=== PATIENT | female | born 1935 | race Caucasian/White ===

== ENCOUNTER 2020-08-14 06:09 | Outpatient (REF) | payer MEDICARE, OTHER, SELFPAY ==
[2020-08-14 11:03] LABS: MANUAL DIFF FLAG NO
[2020-08-14 11:08] LABS: Basophils Absolute Auto 0.1 X10*3/uL (0.0-0.2); Basophils Percent Auto 0.8 % (0-2); Eosinophils Absolute Auto 0.2 X10*3/uL (0.0-0.4); Eosinophils Percent Auto 2.9 % (0-4); Hematocrit 39.7 % (37-47); Imm Gran Abs Auto 0.01 X10*3/uL (0.00-0.03); Imm Gran Pct Auto 0.2 % (0.0-0.4); Lymphocytes Absolute Auto 1.4 X10*3/uL (1.2-4.9); Lymphocytes Percent Auto 24.2 % (20-40); Mean Corpuscular HGB Conc 32.7 g/dl (31.0-35.0); Mean Corpuscular Volume 97.8 fL (80-98); Mean Platelet Volume 12.1 fL (9.4-12.3); Monocytes Absolute Auto 0.6 X10*3/uL (0.1-1.2); Monocytes Percent Auto 9.5 % (2-11); Neutrophils Absolute Auto 3.7 X10*3/uL (2.0-8.3); Neutrophils Percent Auto 62.4 % (45-73); Platelet Count 202 X10*3/uL (160-400); Red Blood Count 4.06 X10*6/uL (4.20-5.50); Red Cell Distribution Width 12.4 % (11.0-16.0); White Blood Count 5.9 X10*3/uL (4.8-10.8)
[2020-08-14 11:31] LABS: Alanine Aminotransferase 16 U/L (0-31); Anion Gap 11 (12-20); Aspartate Amino Transferase 18 U/L (5-31); Blood Urea Nitrogen 23 mg/dL (9-16); Calcium 8.6 mg/dL (8.4-10.2); Carbon Dioxide 27 mmol/L (22-29); Chloride 107 mmol/L (96-108); Cholesterol 155 mg/dL; Estimated Glomerular Filt Rate > 60; Glucose Fasting 104 mg/dL (60-99); HDL Cholesterol 59 mg/dL; LDL Cholesterol Calculated 77 mg/dl; Potassium 4.4 mmol/L (3.3-5.1); Sodium 141 mmol/L (135-145); Triglycerides 95 mg/dL
[2020-08-14 11:53] LABS: Free T4 (Free Thyroxine) 1.39 ng/dL (0.71-1.85); Thyroid Stimulating Hormone 1.79 uIU/mL (0.32-4.0); Vitamin D 25-OH Total 27.1 ng/mL (>30)
== END 2020-08-14 06:10 | disposition home or self-care (01) ==
LOC: HO.HMGCLDS 06:09
PROVIDERS: PCP Internal Medicine; Visit Provider Internal Medicine
DX: E03.9 Hypothyroidism, unspecified (principal); I10 Essential (primary) hypertension; Z78.0 Asymptomatic menopausal state
CPT/HCPCS: 36415; 80048; 80061; 82306; 84439; 84443; 84450; 84460; 85025

== ENCOUNTER 2020-12-14 06:08 | Outpatient (REF) | payer MEDICARE, OTHER, SELFPAY ==
[2020-12-14 11:41] LABS: Alanine Aminotransferase 11 U/L (0-31); Anion Gap 13 (12-20); Aspartate Amino Transferase 18 U/L (5-31); Blood Urea Nitrogen 26 mg/dL (9-16); Calcium 8.9 mg/dL (8.4-10.2); Carbon Dioxide 26 mmol/L (22-29); Chloride 109 mmol/L (96-108); Cholesterol 159 mg/dL; Estimated Glomerular Filt Rate > 60; Glucose Fasting 102 mg/dL (60-99); HDL Cholesterol 56 mg/dL; LDL Cholesterol Calculated 85 mg/dl; Potassium 4.7 mmol/L (3.3-5.1); Sodium 143 mmol/L (135-145); Triglycerides 92 mg/dL
[2020-12-14 12:10] LABS: Free T4 (Free Thyroxine) 1.36 ng/dL (0.71-1.85); Thyroid Stimulating Hormone 0.58 uIU/mL (0.32-4.0); Vitamin D 25-OH Total 47.1 ng/mL (>30)
== END 2020-12-14 06:09 | disposition home or self-care (01) ==
LOC: HO.HMGCLDS 06:08
PROVIDERS: PCP Internal Medicine; Visit Provider Internal Medicine
DX: E03.9 Hypothyroidism, unspecified (principal); E55.9 Vitamin D deficiency, unspecified; E78.5 Hyperlipidemia, unspecified; I10 Essential (primary) hypertension; Z78.0 Asymptomatic menopausal state
CPT/HCPCS: 36415; 80048; 80061; 82306; 84439; 84443; 84450; 84460

== ENCOUNTER 2021-04-02 06:05 | Outpatient (REF) | payer MEDICARE, OTHER, SELFPAY ==
[2021-04-02 11:57] LABS: Alanine Aminotransferase 16 U/L (0-31); Aspartate Amino Transferase 18 U/L (5-31); Cholesterol 151 mg/dL; HDL Cholesterol 57 mg/dL; LDL Cholesterol Calculated 74 mg/dl; Triglycerides 101 mg/dL
[2021-04-02 12:01] LABS: Free T4 (Free Thyroxine) 1.27 ng/dL (0.71-1.85); Thyroid Stimulating Hormone 1.39 uIU/mL (0.32-4.0)
== END 2021-04-02 06:06 | disposition home or self-care (01) ==
LOC: HO.HMGCLDS 06:05
PROVIDERS: PCP Internal Medicine; Visit Provider Internal Medicine
DX: I65.23 Occlusion and stenosis of bilateral carotid arteries (principal); I25.10 Atherosclerotic heart disease of native coronary artery without angina pectoris; E78.5 Hyperlipidemia, unspecified; E03.9 Hypothyroidism, unspecified; Z78.0 Asymptomatic menopausal state
CPT/HCPCS: 36415; 80061; 84439; 84443; 84450; 84460

== ENCOUNTER 2021-09-28 13:48 | Outpatient (REF) | payer MEDICARE, OTHER, SELFPAY ==
[2021-09-28 14:00] LABS: Appearance Urine HAZY; Color Urine YELLOW; Glucose Urine UA NEG (NEG); Leukocyte Esterase Urine NEG (NEG); Nitrite Urine NEG (NEG); PH 5.5 (5.0-8.0); UACC Culture Trigger NO; Urine Blood 1+ (NEG); Urine Ketones NEG (NEG); Urine Protein NEG (NEG-TRACE)
[2021-09-28 14:11] LABS: RBC Urine 0-2 /HPF (0); Squamous Epithelial Cell Urine TRACE /LPF; WBC Urine 0-2 /HPF (0-4)
== END 2021-09-28 13:49 | disposition home or self-care (01) ==
LOC: HO.LNP 13:48
PROVIDERS: Visit Provider Physician Assistant Medical
DX: R30.0 Dysuria (principal)
CPT/HCPCS: 81001

== ENCOUNTER 2021-10-08 06:04 | Outpatient (REF) | payer MEDICARE, OTHER, SELFPAY ==
[2021-10-08 11:13] LABS: MANUAL DIFF FLAG NO
[2021-10-08 11:17] LABS: Appearance Urine CLEAR; Color Urine YELLOW; Glucose Urine UA NEG (NEG); Leukocyte Esterase Urine NEG (NEG); Nitrite Urine NEG (NEG); PH 5.5 (5.0-8.0); UACC Culture Trigger NO; Urine Blood TRACE (NEG); Urine Ketones NEG (NEG); Urine Protein NEG (NEG-TRACE)
[2021-10-08 11:30] LABS: Basophils Percent Auto 0.7 % (0-2); Eosinophils Absolute Auto 0.1 X10*3/uL (0.0-0.4); Eosinophils Percent Auto 2.5 % (0-4); Hemoglobin 12.6 g/dl (12.0-16.0); Imm Gran Abs Auto 0.01 X10*3/uL (0.00-0.03); Imm Gran Pct Auto 0.2 % (0.0-0.4); Lymphocytes Absolute Auto 1.4 X10*3/uL (1.2-4.9); Lymphocytes Percent Auto 25.6 % (20-40); Mean Corpuscular HGB Conc 32.3 g/dl (31.0-35.0); Mean Corpuscular Hemoglobin 31.4 pg (27.0-33.0); Mean Corpuscular Volume 97.3 fL (80.0-98.0); Mean Platelet Volume 11.9 fL (9.4-12.3); Monocytes Absolute Auto 0.6 X10*3/uL (0.1-1.2); Monocytes Percent Auto 10.1 % (2-11); Neutrophils Absolute Auto 3.4 x10*3/uL (2.0-8.3); Neutrophils Percent Auto 60.9 % (45-73); Platelet Count 196 X10*3/uL (160-400); Red Blood Count 4.01 X10*6/uL (4.20-5.50); Red Cell Distribution Width 12.4 % (11.0-16.0); White Blood Count 5.6 X10*3/uL (4.8-10.8)
[2021-10-08 11:35] LABS: Alanine Aminotransferase 13 U/L (0-31); Anion Gap 10 (12-20); Aspartate Amino Transferase 16 U/L (5-31); Blood Urea Nitrogen 26 mg/dL (9-16); Calcium 9.1 mg/dL (8.4-10.2); Carbon Dioxide 27 mmol/L (22-29); Chloride 107 mmol/L (96-108); Cholesterol 212 mg/dL; Estimated Glomerular Filt Rate > 60; Glucose Fasting 116 mg/dL (60-99); HDL Cholesterol 55 mg/dL; LDL Cholesterol Calculated 141 mg/dl; Potassium 4.3 mmol/L (3.3-5.1); Sodium 140 mmol/L (135-145); Triglycerides 82 mg/dL
[2021-10-08 11:48] LABS: WBC Urine 0-2 /HPF (0-4)
[2021-10-08 11:49] LABS: Squamous Epithelial Cell Urine 1+ /LPF
[2021-10-08 12:01] LABS: Free T4 (Free Thyroxine) 1.32 ng/dL (0.71-1.85); Thyroid Stimulating Hormone 1.53 uIU/mL (0.32-4.0); Vitamin D 25-OH Total 24.4 ng/mL (>30)
== END 2021-10-08 06:05 | disposition home or self-care (01) ==
LOC: HO.HMGCLDS 06:04
PROVIDERS: Physician Assistant Medical; Visit Provider Internal Medicine
DX: I65.23 Occlusion and stenosis of bilateral carotid arteries (principal); I73.9 Peripheral vascular disease, unspecified; I10 Essential (primary) hypertension; I25.10 Atherosclerotic heart disease of native coronary artery without angina pectoris; E03.9 Hypothyroidism, unspecified; E78.5 Hyperlipidemia, unspecified; R30.0 Dysuria
CPT/HCPCS: 36415; 80048; 80061; 81001; 82306; 84439; 84443; 84450; 84460; 85025

== ENCOUNTER 2021-10-25 14:28 | Outpatient (REF) | payer MEDICARE, OTHER, SELFPAY ==
[2021-10-25 16:31] LABS: Appearance Urine CLEAR; Color Urine YELLOW; Glucose Urine UA NEG (NEG); Leukocyte Esterase Urine 1+ (NEG); Nitrite Urine NEG (NEG); UACC Culture Trigger YES; Urine Blood 1+ (NEG); Urine Ketones NEG (NEG); Urine Protein NEG (NEG-TRACE)
[2021-10-25 16:58] LABS: Bacteria Urine 2+ /LPF; Mucus Urine 2+ /LPF; Squamous Epithelial Cell Urine 2+ /LPF; WBC Clumps Urine NOTED
== END 2021-10-25 14:29 | disposition home or self-care (01) ==
LOC: HO.LAB 14:28
PROVIDERS: Visit Provider Nurse Practitioner Acute Care
DX: N39.0 Urinary tract infection, site not specified (principal)
CPT/HCPCS: 81001; 87086

== ENCOUNTER 2021-11-28 08:43 | Outpatient (REF) | payer MEDICARE, OTHER, SELFPAY ==
--- NOTE | ~2021-11-28 | XR_ITS ---
EXAMINATION: XR CHEST CLINICAL INFORMATION: S20.229A - Contusion of unspecified back wall of thorax COMPARISON: None TECHNIQUE: 2 views of the chest were obtained. FINDINGS: There is mild hyperinflation greater upper zones. Small bibasilar effusions are present with subsegmental atelectasis, greater on left. There is no pneumothorax. No lobar or segmental airspace consolidation are bronchogram. The heart is normal in size. The hilar and mediastinal contours are normal. No visible acute bony abnormality. There are mild multilevel degenerative changes thoracic spine. XR/XR chest 2V IMPRESSION: -Small bibasilar effusions and subsegmental atelectasis. -No lobar or segmental airspace consolidation. No pneumothorax or pleural reaction. -No visible acute bony abnormality.
== END 2021-11-28 08:44 | disposition home or self-care (01) ==
LOC: HO.HMGCX 08:43
PROVIDERS: Visit Provider Internal Medicine
DX: S20.229A Contusion of unspecified back wall of thorax, initial encounter (principal); X58.XXXA Exposure to other specified factors, initial encounter; Y93.9 Activity, unspecified; Y92.9 Unspecified place or not applicable; Y99.9 Unspecified external cause status
CPT/HCPCS: 71046

== ENCOUNTER 2022-02-19 15:29 | Outpatient (REF) | payer MEDICARE, OTHER, SELFPAY ==
--- NOTE | ~2022-02-19 | XR_ITS ---
EXAMINATION: XR KNEE, LEFT CLINICAL INFORMATION: S83.92XA - Sprain of unspecified site of left knee, initial encounter COMPARISON: None TECHNIQUE: AP, lateral, and both oblique views of the left knee. FINDINGS: Enthesopathic spurs are present at the quadriceps tendon insertion, patellar tendon origin, and patellar tendon insertion. No fracture or malalignment. Joint spaces are well-preserved. Calcific atherosclerosis is present in the popliteal and runoff arteries. No joint effusion. XR/XR knee LT 4V IMPRESSION: No acute osseous findings at the left knee.
== END 2022-02-19 15:30 | disposition home or self-care (01) ==
LOC: HO.HMGCX 15:29
PROVIDERS: PCP Internal Medicine; Visit Provider Internal Medicine
DX: S83.92XA Sprain of unspecified site of left knee, initial encounter (principal)
CPT/HCPCS: 73564

== ENCOUNTER 2022-03-08 06:01 | Outpatient (REF) | payer MEDICARE, OTHER, SELFPAY ==
[2022-03-08 11:58] LABS: Alanine Aminotransferase 19 U/L (0-31); Anion Gap 13 (12-20); Aspartate Amino Transferase 26 U/L (5-31); Blood Urea Nitrogen 22 mg/dL (9-16); Calcium 8.7 mg/dL (8.4-10.2); Carbon Dioxide 25 mmol/L (22-29); Chloride 105 mmol/L (96-108); Cholesterol 214 mg/dL; Estimated Glomerular Filt Rate > 60; Glucose Fasting 112 mg/dL (60-99); HDL Cholesterol 59 mg/dL; LDL Cholesterol Calculated 139 mg/dl; Potassium 4.3 mmol/L (3.3-5.1); Sodium 139 mmol/L (135-145); Triglycerides 82 mg/dL
[2022-03-08 12:25] LABS: Free T4 (Free Thyroxine) 1.44 ng/dL (0.71-1.85); Thyroid Stimulating Hormone 1.34 uIU/mL (0.32-4.0); Vitamin D 25-OH Total 34.8 ng/mL (>30)
== END 2022-03-08 06:02 | disposition home or self-care (01) ==
LOC: HO.HMGCLDS 06:01
PROVIDERS: PCP Internal Medicine; Visit Provider Internal Medicine
DX: E55.9 Vitamin D deficiency, unspecified (principal); E78.5 Hyperlipidemia, unspecified; I10 Essential (primary) hypertension; E03.9 Hypothyroidism, unspecified
CPT/HCPCS: 36415; 80048; 80061; 82306; 84439; 84443; 84450; 84460

== ENCOUNTER 2022-09-04 06:08 | Outpatient (REF) | payer MEDICARE, OTHER, SELFPAY ==
[2022-09-04 11:19] LABS: MANUAL DIFF FLAG NO
[2022-09-04 11:24] LABS: Basophils Percent Auto 0.7 % (0-2); Eosinophils Absolute Auto 0.1 X10*3/uL (0.0-0.4); Eosinophils Percent Auto 2.4 % (0-4); Hematocrit 40.8 % (37.0-47.0); Hemoglobin 13.4 g/dl (12.0-16.0); Imm Gran Abs Auto 0.02 X10*3/uL (0.00-0.03); Imm Gran Pct Auto 0.4 % (0.0-0.4); Lymphocytes Absolute Auto 1.5 X10*3/uL (1.2-4.9); Lymphocytes Percent Auto 26.6 % (20-40); Mean Corpuscular HGB Conc 32.8 g/dl (31.0-35.0); Mean Corpuscular Hemoglobin 31.5 pg (27.0-33.0); Mean Corpuscular Volume 95.8 fL (80.0-98.0); Monocytes Absolute Auto 0.6 X10*3/uL (0.1-1.2); Monocytes Percent Auto 10.7 % (2-11); Neutrophils Absolute Auto 3.3 x10*3/uL (2.0-8.3); Neutrophils Percent Auto 59.2 % (45-73); Platelet Count 175 X10*3/uL (160-400); Red Blood Count 4.26 X10*6/uL (4.20-5.50); Red Cell Distribution Width 12.5 % (11.0-16.0); White Blood Count 5.5 X10*3/uL (4.8-10.8)
[2022-09-04 11:59] LABS: Alanine Aminotransferase 14 U/L (0-31); Anion Gap 12 (12-20); Aspartate Amino Transferase 19 U/L (5-31); Blood Urea Nitrogen 25 mg/dL (9-16); Carbon Dioxide 27 mmol/L (22-29); Chloride 107 mmol/L (96-108); Cholesterol 221 mg/dL; Estimated Glomerular Filt Rate > 60; Glucose Fasting 109 mg/dL (60-99); HDL Cholesterol 61 mg/dL; LDL Cholesterol Calculated 142 mg/dl; Potassium 4.4 mmol/L (3.3-5.1); Sodium 142 mmol/L (135-145); Triglycerides 94 mg/dL
[2022-09-04 12:01] LABS: Free T4 (Free Thyroxine) 1.21 ng/dL (0.71-1.85); Thyroid Stimulating Hormone 0.84 uIU/mL (0.32-4.0); Vitamin D 25-OH Total 21.9 ng/mL (>30)
== END 2022-09-04 06:09 | disposition home or self-care (01) ==
LOC: HO.HMGCLDS 06:08
PROVIDERS: PCP Internal Medicine; Visit Provider Internal Medicine
DX: E03.9 Hypothyroidism, unspecified (principal); E78.5 Hyperlipidemia, unspecified; N95.9 Unspecified menopausal and perimenopausal disorder; I10 Essential (primary) hypertension
CPT/HCPCS: 36415; 80048; 80061; 82306; 84439; 84443; 84450; 84460; 85025

== ENCOUNTER 2022-10-01 06:05 | Outpatient (REF) | payer MEDICARE, OTHER, SELFPAY ==
[2022-10-01 11:39] LABS: Appearance Urine Clear; Color Urine Yellow; Glucose Urine UA Negative (Negative); Leukocyte Esterase Urine Small (1+) (Negative); Nitrite Urine Negative (Negative); PH 6.5 (5.0-9.0); Specific Gravity - Urine 1.015 (1.005-1.025); UMIC TRIGGER UACC YES; Urine Blood Small (1+) (Negative); Urine Ketones Negative (Negative); Urine Protein Negative (Neg-Trace)
[2022-10-01 12:37] LABS: Bacteria Urine None Seen (None Seen); Hyaline Casts Urine 0-2 /LPF (0-2); Renal Epithelial Cells Urine Present; Transitional Epi Cells Urine Present; UACC Culture Trigger YES
== END 2022-10-01 06:06 | disposition home or self-care (01) ==
LOC: HO.HMGCLNP 06:05
PROVIDERS: PCP Internal Medicine; Visit Provider Internal Medicine
DX: N39.0 Urinary tract infection, site not specified (principal)
CPT/HCPCS: 81001; 87086

== ENCOUNTER 2023-02-27 06:09 | Outpatient (REF) | payer MEDICARE, OTHER, SELFPAY ==
[2023-02-27 12:06] LABS: Appearance Urine Clear; Color Urine Yellow; Glucose Urine UA Negative (Negative); Leukocyte Esterase Urine Small (1+) (Negative); Nitrite Urine Negative (Negative); PH 5.5 (5.0-9.0); Specific Gravity - Urine 1.015 (1.005-1.025); UMIC TRIGGER UACC YES; Urine Blood Trace (Negative); Urine Ketones Negative (Negative); Urine Protein Negative (Neg-Trace)
[2023-02-27 12:15] LABS: Alanine Aminotransferase 11 U/L (0-31); Anion Gap 11 (12-20); Aspartate Amino Transferase 18 U/L (5-31); Blood Urea Nitrogen 22 mg/dL (9-16); Calcium 9.3 mg/dL (8.4-10.2); Carbon Dioxide 26 mmol/L (22-29); Chloride 107 mmol/L (96-108); Cholesterol 193 mg/dL (<200); Estimated Glomerular Filt Rate > 60; Glucose Fasting 110 mg/dL (60-99); HDL Cholesterol 54 mg/dL (>40); LDL Cholesterol Calculated 116 mg/dL (<100); Potassium 4.4 mmol/L (3.3-5.1); Sodium 140 mmol/L (135-145); Triglycerides 117 mg/dL (<150)
[2023-02-27 12:20] LABS: Bacteria Urine None Seen (None Seen); Hyaline Casts Urine 0-2 /LPF (0-2); RBC Urine 0-2 /HPF (0-2); UACC Culture Trigger YES; WBC Urine 0-5 /HPF (0-5)
[2023-02-27 12:35] LABS: Free T4 (Free Thyroxine) 1.17 ng/dL (0.71-1.85); Thyroid Stimulating Hormone 0.74 uIU/mL (0.32-4.0); Vitamin D 25-OH Total 36.5 ng/mL (>30)
== END 2023-02-27 06:10 | disposition home or self-care (01) ==
LOC: HO.HMGCLDS 06:09
PROVIDERS: PCP Internal Medicine; Visit Provider Internal Medicine
DX: E03.9 Hypothyroidism, unspecified (principal); E55.9 Vitamin D deficiency, unspecified; E78.5 Hyperlipidemia, unspecified; I10 Essential (primary) hypertension; N39.0 Urinary tract infection, site not specified; I25.10 Atherosclerotic heart disease of native coronary artery without angina pectoris; I73.9 Peripheral vascular disease, unspecified; Z78.0 Asymptomatic menopausal state
CPT/HCPCS: 36415; 80048; 80061; 81001; 81003; 82306; 84439; 84443; 84450; 84460; 87086

== ENCOUNTER 2023-03-18 08:26 | Outpatient (AMB) | payer MEDICARE, OTHER, SELFPAY ==
--- NOTE | 2023-03-18 08:27 | AM.OFFVISMDC ---
Intake Vital Signs 03/18/23 08:33 Height 5 ft 4 in Weight 128 lb BMI 22.0 BP 144/54 H Blood Pressure Location Lt brachial Position Sitting Pulse 76 Pulse Source Pulse Oximeter Pulse Oximetry (%) 99 Oxygen Delivery Method Room Air Intake Visit Reasons: SWV G0439 Intake Note: Pt is here today for her SWV Allergies ezetimibe [From ZETIA] Allergy (Severe, Verified 03/26/23 14:38) MUSCLE PAIN Orwrzmp-UNN-KkJ Reductase Inhibitor [LAQWVCR-PLO-JGH REDUCTASE INHIBITOR] Allergy (Severe, Verified 03/26/23 14:38) MUSCLE PAIN Sulfa (Sulfonamide Antibiotics) [SULFA (SULFONAMIDE ANTIBIOTICS)] Allergy (Mild, Verified 03/26/23 14:38) RASH losartan [From COZAAR] Allergy (Unknown, Verified 03/26/23 14:38) UNKNOWN Medication List - Last Reconciled 03/18/23 by Ivelisse Masters MD amlodipine 5 mg PO DAILY aspirin 81 mg PO DAILY carvedilol 12.5 mg PO Q12H colestipol 5 grams PO DAILY enalapril maleate 5 mg PO DAILY faricimab-svoa (Vabysmo) 0.05 mL intravitreal Q4W levothyroxine 75 mcg PO DAILY red yeast rice 600 mg PO ONCE HPI SWV G0439 HPI Details SWV ? 87 year old lady with hypertension, hypothyroidism, prefer vascular disease and coronary artery disease, macular degeneration, presents today for her ? Annual Wellness Visit, subsequent visit. She no longer gets screening mammograms Pap smears or colonoscopy screening, her last colonoscopy was done by Dr. Gonzales December 06, 2013 with normal findings. She is up-to-date with her flu shot, but due for her yearly update flu vaccine, had Shingrix vaccination, up-to-date with her pneumonia vaccination and tetanus diphtheria booster. She had a normal fasting lipid panel done February 27, 2023, and a fasting blood sugar level was done at that time which showed a fasting blood sugar at 1 10 mg/dL in the prediabetic range. .? Medical / Social History Reviewed? Past Medical History ?Yes . ? [place] of Care / Care Team list updated ?Yes . ? Surgical/Hospitalization History ?Yes . ? Current Medications (including OTC and supplements) ?Yes . ? Family History ?Yes . ? Tobacco Control form ?Yes . ? AUDIT-C (Alcohol use) form ?Yes . ? Illicit drug use in Social History ?Yes . ? Current diagnosis of depression? ?No ? Appropriate PHQ2/PHQ9 completed ?Yes . ? Data entered by ?[employer] and reviewed by provider ? Fall Risk ? Fall History? Have you had any falls with injury in the past year? ?No . ? Have you had two or more falls in the past year? ?No . ? Fall Risk Assessment: ?No falls in the past year . ? HRA filled out by the patient, reviewed by Provider and scanned. ? SWV ? Balance? [place] ?Yes . ? Tandem walk ?with some difficulty but able to do ? Walk and Turn ?Yes . ? Rise from sit to stand ?Yes . ?Vision? Corrective lens ?Yes ? Vision screen ? Up-to-date, currently sees Dr. Méndez at the [facility] for follow-up on her wet ARMD, OD ?Hearing? Whisper test ?pass . ?Written Plan?Completed. See Patient Documents.? 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 Sister No problems noted. Social History Housing: House Patient Tobacco Use Status: Never used Tobacco e-Cigarette/Vaping Use: Never Used Second Hand Smoke Exposure: No service: No Current occupational status: retired Cognitive needs: No Hearing needs: No Vision needs: Yes Questionnaire Medicare Wellness Checkup What is your age?: 80 or older What gender do you identify with?: female During the past 4 weeks, how much have you been bothered by emotional problems such as feeling anxious, depressed, irritable, sad or downhearted, and blue?: not at all During the past 4 weeks, has your physical & emotional health limited your social activities with family, friends, neighbors, or groups?: not at all During the past 4 weeks, how much bodily pain have you generally had?: very mild pain During the past 4 weeks, was someone available to help you if you needed & wanted help?: yes, as much as I wanted During the past 4 weeks, what was the hardest physical activity you could do for at least 2 minutes?: moderate Can you get to places out of walking distance without help? (For eg., can you travel alone on buses, taxis or drive your car?): Yes Can you go shopping for groceries or clothes without someone's help?: Yes Can you prepare your own meals?: Yes Can you do your housework without help?: Yes Because of any health problems, do you need the help of another person with your personal care needs such as eating, bathing, dressing or getting around the house?: No Can you handle your own money without help?: Yes During the past 4 weeks, how would you rate your health in general?: very good During the past 4 weeks how have things been going for you?: very well; could hardly better Are you having difficulties driving your car?: no Do you always fasten your seat belt when you are in a car?: yes, usually Have you fallen 2 or more times in the past year?: No Are you afraid of falling?: Yes Are you a smoker?: no During the past 4 weeks, how many drinks of wine, beer, or other alcoholic beverages did you have?: no alcohol at all Do you exercise for about 20 minutes 3 or more times a week?: no, I usually do not exercise this much Have you been given information to help with the following?: yes: Hazards in your house that might hurt you? and yes: Keeping track of your medications? How often do you have trouble taking medicines the way you have been told to take them?: I always take medicine as prescribed How confident are you that you can control & manage most of your health problems?: very confident What is your race?: White Mini Mental State Exam (MMSE) Orientation What is the (year) (season) (date) (day) (month)?: year (2022), season (summer), date ([id number]), day and month (Feb) Where are we (state) (county) (town or city) (hospital) (floor)?: state ([place]), [facility] ([place]), town or city ([place]) and hospital/clinic ([facility]) Score Score: 9 Activity of Daily Living Bathing - sponge bath, tub bath or shower: receives no assistance (gets in/out by self, if usual bathing means Dressing - getting clothes from closets & drawers, including inner/outer garments & fasteners.: gets clothes & gets completely dressed without help Toileting - going to the 'toilet room' for urine/bowel elimination & cleaning self/arranging clothes: goes to toilet room, cleans self, arranges clothes without help Transfer: moves in & out of bed and chair without help (may use support object) Continence: has occasional 'accidents' Feeding: feeds self without help Total Score: 0 Information obtained from: patient Using telephone: independent Traveling: independent Shopping: independent Preparing meals: independent Housework: independent Taking medicine: independent Managing money: independent PHQ-9 Over the last 2 weeks, how often have you been bothered by any of the following problems? 1. Little interest or pleasure in doing things: not at all 2. Feeling down, depressed, or hopeless: not at all 3. Trouble falling or staying asleep, or sleeping too much: several days 4. Feeling tired or having little energy: not at all 5. Poor appetite or overeating: not at all 6. Feeling bad about yourself - or that you are a failure or have let yourself or your family down: not at all 7. Trouble concentrating on things, such as reading the newspaper or watching television: not at all 8. Moving or speaking so slowly that other people could have noticed. Or the opposite - being so fidgety or restless that you have been moving around a lot more than usual: not at all 9. Thoughts that you would be better off or of hurting yourself in some way: not at all Total score: 1 Depression Screening Interpretation: Negative Source: Developed by Drs. Vimal Rosa, Kelsey Henderson, Carlos Mejias and colleagues, with an educational gely from [employer]. Physical Exam Vital Signs: Last Vital Signs Pulse 76 03/18/23 08:33 BP 144/54 H 03/18/23 08:33 Pulse Ox 99 03/18/23 08:33 Oxygen Delivery Method Room Air 03/18/23 08:33 BMI result Body Mass Index 22.0 Assessment & Plan Assessment & Plan (1) Encounter for annual wellness visit (AWV) in Medicare patient: Code(s): Z00.00 - Encounter for general adult medical examination without abnormal findings Plan: Medical wellness checklist reviewed , discussed, and updated, copy given to patient.. Patient already completed her MOLST form and has a healthcare proxy at home will provide a copy on next visit. Reminded to get her COVID booster and her flu shot for this year (2) Vitamin D deficiency: Code(s): E55.9 - Vitamin D deficiency, unspecified Plan: Advised to start taking batv-zck-yatdsgt vitamin-D 3 2000 units daily (3) Recurrent UTI: Code(s): N39.0 - Urinary tract infection, site not specified Plan: Currently followed at [facility] (4) Atherosclerotic heart disease of [place] coronary artery without angina pectoris: Code(s): I25.10 - Atherosclerotic heart disease of [place] coronary artery without angina pectoris Plan: Continue aspirin 81 mg dL, carvedilol, amlodipine, followed by [facility], Dr. Sosa (5) Bilateral carotid artery stenosis: Code(s): I65.23 - Occlusion and stenosis of bilateral carotid arteries Plan: Followed by cardiology (6) Dyslipidemia: Code(s): E78.5 - Hyperlipidemia, unspecified Plan: Patient does not want start statins, has been taking red yeast rice (7) Essential hypertension: Code(s): I10 - Essential (primary) hypertension Plan: Stable controlled on her present treatment, currently on enalapril maleate, carvedilol and amlodipine (8) Acquired hypothyroidism: Code(s): E03.9 - Hypothyroidism, unspecified Plan: Yet continue with levothyroxine (9) Age-related macular degeneration, wet, right eye: Code(s): H35.3210 - Exudative age-related macular degeneration, right eye, stage unspecified Plan: Currently being followed at [facility] [place] Orders: Orders Alanine Aminotransferase 09/15/23 E55.9 - Vitamin D deficiency, unspecified, N39.0 - Urinary tract infection, site not specified, I25.10 - Atherosclerotic heart disease of [place] coronary artery without angina pectoris, I65.23 - Occlusion and stenosis of bilateral carotid arteries, I73.9 - Peripheral vascular disease, unspecified, E78.5 - Hyperlipidemia, unspecified, I10 - Essential (primary) hypertension, H35.3210 - Exudative age-related macular degeneration, right eye, stage unspecified, E03.9 - Hypothyroidism, unspecified Aspartate Amino Transferase 09/15/23 E55.9 - Vitamin D deficiency, unspecified, N39.0 - Urinary tract infection, site not specified, I25.10 - Atherosclerotic heart disease of [place] coronary artery without angina pectoris, I65.23 - Occlusion and stenosis of bilateral carotid arteries, I73.9 - Peripheral vascular disease, unspecified, E78.5 - Hyperlipidemia, unspecified, I10 - Essential (primary) hypertension, H35.3210 - Exudative age-related macular degeneration, right eye, stage unspecified, E03.9 - Hypothyroidism, unspecified Vitamin D 25-OH Total 09/15/23 E55.9 - Vitamin D deficiency, unspecified, N39.0 - Urinary tract infection, site not specified, I25.10 - Atherosclerotic heart disease of [place] coronary artery without angina pectoris, I65.23 - Occlusion and stenosis of bilateral carotid arteries, I73.9 - Peripheral vascular disease, unspecified, E78.5 - Hyperlipidemia, unspecified, I10 - Essential (primary) hypertension, H35.3210 - Exudative age-related macular degeneration, right eye, stage unspecified, E03.9 - Hypothyroidism, unspecified Basic Metabolic Panel Fasting 09/15/23 E55.9 - Vitamin D deficiency, unspecified, N39.0 - Urinary tract infection, site not specified, I25.10 - Atherosclerotic heart disease of [place] coronary artery without angina pectoris, I65.23 - Occlusion and stenosis of bilateral carotid arteries, I73.9 - Peripheral vascular disease, unspecified, E78.5 - Hyperlipidemia, unspecified, I10 - Essential (primary) hypertension, H35.3210 - Exudative age-related macular degeneration, right eye, stage unspecified, E03.9 - Hypothyroidism, unspecified Lipid Panel 09/15/23 E55.9 - Vitamin D deficiency, unspecified, N39.0 - Urinary tract infection, site not specified, I25.10 - Atherosclerotic heart disease of [place] coronary artery without angina pectoris, I65.23 - Occlusion and stenosis of bilateral carotid arteries, I73.9 - Peripheral vascular disease, unspecified, E78.5 - Hyperlipidemia, unspecified, I10 - Essential (primary) hypertension, H35.3210 - Exudative age-related macular degeneration, right eye, stage unspecified, E03.9 - Hypothyroidism, unspecified Hemoglobin A1c 09/14/ E55.9 - Vitamin D deficiency, unspecified, N39.0 - Urinary tract infection, site not specified, I25.10 - Atherosclerotic heart disease of [place] coronary artery without angina pectoris, I65.23 - Occlusion and stenosis of bilateral carotid arteries, I73.9 - Peripheral vascular disease, unspecified, E78.5 - Hyperlipidemia, unspecified, I10 - Essential (primary) hypertension, H35.3210 - Exudative age-related macular degeneration, right eye, stage unspecified, E03.9 - Hypothyroidism, unspecified Thyroid Stimulating Hormone 09/15/23 E55.9 - Vitamin D deficiency, unspecified, N39.0 - Urinary tract infection, site not specified, I25.10 - Atherosclerotic heart disease of [place] coronary artery without angina pectoris, I65.23 - Occlusion and stenosis of bilateral carotid arteries, I73.9 - Peripheral vascular disease, unspecified, E78.5 - Hyperlipidemia, unspecified, I10 - Essential (primary) hypertension, H35.3210 - Exudative age-related macular degeneration, right eye, stage unspecified, E03.9 - Hypothyroidism, unspecified Free T4 (Free Thyroxine) 09/15/23 E03.9 - Hypothyroidism, unspecified, E55.9 - Vitamin D deficiency, unspecified, N39.0 - Urinary tract infection, site not specified, I25.10 - Atherosclerotic heart disease of [place] coronary artery without angina pectoris, I65.23 - Occlusion and stenosis of bilateral carotid arteries, I73.9 - Peripheral vascular disease, unspecified, E78.5 - Hyperlipidemia, unspecified, I10 - Essential (primary) hypertension, H35.3210 - Exudative age-related macular degeneration, right eye, stage unspecified Quality Reporting (2019) Depression/Bipolar (159/160/161/177) PHQ-9: Total score: 1 Coding Level of Care Code Medicare Subsequent (G0439) Diagnoses Encounter for annual wellness visit (AWV) in Medicare patient Z00.00 Vitamin D deficiency E55.9 Recurrent UTI N39.0 Atherosclerotic heart disease of [place] coronary artery without angina pectoris I25.10 Bilateral carotid artery stenosis I65.23 Dyslipidemia E78.5 Essential hypertension I10 Acquired hypothyroidism E03.9 Age-related macular degeneration, wet, right eye H35.8801
[2023-03-18 08:33] VITALS: BP 144/54; PULSE 76; O2SAT 99; BMI 22.0
== END 2023-03-18 10:00 | disposition home or self-care (01) ==
PROVIDERS: Visit Provider Internal Medicine
DX: Z00.00 Encounter for general adult medical examination without abnormal findings (principal); E55.9 Vitamin D deficiency, unspecified; I10 Essential (primary) hypertension; E03.9 Hypothyroidism, unspecified; H35.3210 Exudative age-related macular degeneration, right eye, stage unspecified; N39.0 Urinary tract infection, site not specified; I25.10 Atherosclerotic heart disease of native coronary artery without angina pectoris; I65.23 Occlusion and stenosis of bilateral carotid arteries; E78.5 Hyperlipidemia, unspecified
CPT/HCPCS: G0439

== ENCOUNTER 2023-10-14 06:08 | Outpatient (REF) | payer MEDICARE, OTHER, SELFPAY ==
[2023-10-14 11:06] LABS: Estimated Average Glucose 137 mg/dL; Hemoglobin A1C 150.9102 umol/L; Hemoglobin A1c % 6.4 % (<6.0)
[2023-10-14 11:11] LABS: Alanine Aminotransferase 15 U/L (0-31); Anion Gap 8 (12-20); Aspartate Amino Transferase 40 U/L (5-31); Blood Urea Nitrogen 29 mg/dL (9-16); Calcium 9.2 mg/dL (8.4-10.2); Carbon Dioxide 28 mmol/L (22-29); Chloride 106 mmol/L (96-108); Cholesterol 240 mg/dL (<200); Estimated Glomerular Filt Rate > 60; Glucose Fasting 113 mg/dL (60-99); HDL Cholesterol 57 mg/dL (>40); LDL Cholesterol Calculated 167 mg/dL (<100); Potassium 4.3 mmol/L (3.3-5.1); Sodium 138 mmol/L (135-145); Triglycerides 83 mg/dL (<150)
[2023-10-14 11:16] LABS: Free T4 (Free Thyroxine) 1.33 ng/dL (0.71-1.85); Thyroid Stimulating Hormone 0.86 uIU/mL (0.32-4.0); Vitamin D 25-OH Total 28.3 ng/mL (>30)
== END 2023-10-14 06:09 | disposition home or self-care (01) ==
LOC: HO.HMGCLDS 06:08
PROVIDERS: PCP Internal Medicine; Visit Provider Internal Medicine
DX: E55.9 Vitamin D deficiency, unspecified (principal); N39.0 Urinary tract infection, site not specified; I25.10 Atherosclerotic heart disease of native coronary artery without angina pectoris; I65.23 Occlusion and stenosis of bilateral carotid arteries; I73.9 Peripheral vascular disease, unspecified; E78.5 Hyperlipidemia, unspecified; I10 Essential (primary) hypertension; H35.3210 Exudative age-related macular degeneration, right eye, stage unspecified; E03.9 Hypothyroidism, unspecified
CPT/HCPCS: 36415; 80048; 80061; 82306; 83036; 84439; 84443; 84450; 84460

== ENCOUNTER 2023-10-28 08:24 | Outpatient (AMB) | payer MEDICARE, OTHER, SELFPAY ==
[2023-10-28 08:42] VITALS: BP 110/50; PULSE 62; O2SAT 98; BMI 20.6
--- NOTE | 2023-10-28 08:42 | A.OFFPC_ITS ---
Vital Signs 10/28/23 08:42 Height 5 ft 4 in Weight 120 lb BMI 20.6 BP 110/50 L Blood Pressure Location Lt brachial Position Sitting Pulse 62 Pulse Source Pulse Oximeter Pulse Oximetry (%) 98 Oxygen Delivery Method Room Air Intake Visit Reasons: follow up Intake Note: Pt is here today for her follow-up Allergies ezetimibe [From ZETIA] Allergy (Severe, Verified 10/28/23 09:09) MUSCLE PAIN Dspcieq-JOD-RwQ Reductase Inhibitor [[id number] REDUCTASE INHIBITOR] Allergy (Severe, Verified 10/28/23 09:09) MUSCLE PAIN nitrofurantoin Allergy (Intermediate, Verified 10/28/23 09:15) Cough Sulfa (Sulfonamide Antibiotics) [SULFA (SULFONAMIDE ANTIBIOTICS)] Allergy (Mild, Verified 10/28/23 09:09) RASH losartan [From COZAAR] Allergy (Unknown, Verified 10/28/23 09:09) UNKNOWN Medication List - Last Reconciled 10/28/23 by Ivelisse Masters MD amlodipine 5 mg PO DAILY aspirin 81 mg PO DAILY carvedilol 12.5 mg PO Q12H cephalexin 250 mg PO QAM colesevelam (WelChol) 3,750 mg PO DAILY enalapril maleate 5 mg PO DAILY levothyroxine 75 mcg PO DAILY red yeast rice 600 mg PO ONCE Tobacco use date assessed: 10/28/23 Fall risk assessment: No Falls in past year Last assessed Fall Risk: 10/28/23 Dental Screening Dental Screen Date: 10/28/23 Did you have a dental visit in the last 12 months?: Yes Did you have a dental problem in the last 6 months where you did not have access to dental care?: No Was dental information given to patient?: Patient has dentist HPI follow up HPI Details 88-year-old lady with hypertension, hype rlipidemia, intolerant of statin currently on Welchol and taking red yeast rice, hypothyroidism, here today for her follow-up. HPI Comments History of Present Illness Details 88-year-old lady with hyperlipidemia, in tolerant of statin, previously was on colestipol, but has been out of it since December 2022, currently restarted back on Welchol a week ago, here today for follow-up. Recent fasting labs showed higher total cholesterol and LDL cholesterol . Recent labs also showed presence of vitamin-D deficiency, but patient does not want to start taking any vitamin-D supplements as she had severe GI upset when taking it. She has hypothyroidism and reason thyroid levels are within normal limit. She was also recently started on daily cephalexin 250 mg capsules by her Urology for treatment of recurrent urinary tract infection, which patient states seems to be working. 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 Sister No problems noted. Social History Housing: House Patient Tobacco Use Status: Never used Tobacco e-Cigarette/Vaping Use: Never Used Second Hand Smoke Exposure: No service: No Current occupational status: retired Cognitive needs: No Hearing needs: No Vision needs: Yes Questionnaire PHQ-9 Over the last 2 weeks, how often have you been bothered by any of the following problems? 1. Little interest or pleasure in doing things: not at all 2. Feeling down, depressed, or hopeless: not at all 3. Trouble falling or staying asleep, or sleeping too much: not at all 4. Feeling tired or having little energy: not at all 5. Poor appetite or overeating: not at all 6. Feeling bad about yourself - or that you are a failure or have let yourself or your family down: not at all 7. Trouble concentrating on things, such as reading the newspaper or watching television: not at all 8. Moving or speaking so slowly that other people could have noticed. Or the opposite - being so fidgety or restless that you have been moving around a lot more than usual: not at all 9. Thoughts that you would be better off or of hurting yourself in some way: not at all Total score: 0 Depression Screening Interpretation: Negative Depression Screening Done: Yes Source: Developed by Drs. Vimal Rosa, Kelsey Henderson, Carlos Mejias and colleagues, with an educational gely from [employer]. Thrive Questionnaire Date Thrive assessed: 10/28/23 I am a: Patient What is your living situation today?: I have a steady place to live Within the past 12 months, did the food you bought not last and you didn't have the money to get more?: Never true Within the past 12 months, did you worry whether your food would run out before you got money to buy more?: Never true Do you have trouble paying for medicines?: No Do you have trouble getting transportation to medical appointments?: No Do you have trouble paying your heating and electricity bill?: No Do you have trouble taking care of your child, family member or friend?: No Do you have trouble with day-to-day activities such as bathing, preparing meals, shopping, managing finances, etc.?: No Are you currently unemployed and looking for a job?: No Are you interested in more education?: No THRIVE Score: 0 AUDIT C Alcohol Use Questionnaire (AUDIT-C) 1. How often do you have a drink containing alcohol?: Never Total Score: 0 CARLO-7 AMB Questionnaire CARLO-7 Date CARLO - 7 assessed: 10/28/23 Feeling nervous, anxious, or on edge: 1 = Several days Not being able to stop or control worryin = Not at all Worrying too much about different things: 1 = Several days Trouble relaxin = Not at all Being so restless that it is hard to sit still: 0 = Not at all Becoming easily annoyed or irritable: 1 = Several days Feeling afraid as if something awful might happen: 0 = Not at all Total CARLO-7 score (0-4 normal; 5-9 mild; 10-14 moderate; 15-21 severe): 3 Source: Developed by Drs. Vimal Rosa, Kelsey Henderson, Carlos Mejias and colleagues, with an educational gely from [employer]. CARLO-7 Assessment Billing CARLO-7 Assessment Tool: CARLO-7 Assessment 73484 Review of Systems Const Denies fatigue, Denies fever(s) and Denies headache(s) Eyes Denies change in vision ENT Denies dizziness, Denies headache(s), Denies nasal congestion, Denies nasal discharge and Denies sore throat Card Denies chest pain, Denies lightheadedness, Denies palpitations and Denies dyspnea Resp Denies chest congestion, Denies cough, Denies dyspnea and Denies wheezing GI Denies abdominal pain, Denies change in bowel habits and Denies heartburn Denies urinary frequency, Denies dysuria and Denies urinary urgency Musc Denies arthralgias and Reports stiffness Skin/Breast Denies lesions and Denies rash Neuro Denies dizziness and Denies headache(s) Psych Reports no additional complaints Endo Denies fatigue, Denies polydipsia, Denies polyuria and Denies palpitations Torsten/Lymph Denies easy bruising Aller/Immun Denies seasonal rhinorrhea and Denies wheezing Physical exam (Primary Care) Vital Signs: Last Vital Signs Pulse 62 10/28/23 08:42 BP 110/50 L 10/28/23 08:42 Pulse Ox 98 10/28/23 08:42 Oxygen Delivery Method Room Air 10/28/23 08:42 BMI result Body Mass Index 20.6 Tobacco/Smoking Status: Tobacco use Status Tobacco use date assessed 10/28/23 10/28/23 08:44 Patient Tobacco Use Status Never used Tobacco 10/28/23 08:44 e-Cigarette/Vaping Use Never Used 10/28/23 08:44 Depression Screening Interpretation: Negative Thrive Assessment: Date of Thrive Assessment Date Thrive assessed 10/28/23 10/28/23 08:58 Advance Care Planning discussion: Completed/Scanned Date of discussion: 10/28/23 Who was present: Patient Forms completed: Health Care Proxy Time spent: 16-45 minutes Actual minutes spent: 16 Const Other: Alert oriented x3, no acute distress noted ambulatory normal gait Orientation/consciousness: patient oriented x3 HENMT General nose exam: Normal external nose present Face and sinus: Yes face symmetric Mouth: oropharynx normal and moist mucous membranes Eyes General: appearance normal, both eyes and all related structures Neck Neck: Yes full ROM, Yes no lymphadenopathy and Yes supple Resp Auscultation: clear to auscultation bilaterally Cardio Other: S1-S2 present regular rate and rhythm GI Palpation (GI): Soft to palpation, nontender, no guarding and no masses General: Yes no CVA tenderness Back/Spine/Pelvis Back: no CVA tenderness and No back tenderness Skin General skin exam: no rashes or lesions noted Neuro General: patient oriented x3, gait normal, tone normal, moves all extremities, Normal light touch and pain sensation, no focal motor deficits and CN's II-XI intact bilaterally Extrem General: Yes full ROM, Yes no joint enlargement, Yes no pedal edema, Yes no calf tenderness and Yes normal gait Psych Appearance: grossly normal and well kempt Mental Status: mental status grossly normal Speech and movement: Normal speech and movement present Affect: normal affect Results Reviewed Results Reviewed: Laboratory Tests 10/14/23 06:29 Estimat Average Glucose 137 Hemoglobin A1c % 6.4 H Name: Luz Kaur Age/Sex: 88/F : 1935 Unit#: [id number] Attend Dr: Ivelisse Masters MD Re10/14/23 Status: DEP REF Location: [facility] Disch: SPEC : [id number] JAYLA: 10/14/23 STATUS: COMP REQ : [id number] RECD: 10/14/[address]: Ivelisse Masters MD COMP: 10/14/23 ENTERED: 10/14/[address] [facility] [address]: ORDERED: Met Prof Fast, AST, ALT, Lipid Panel, Vitamin D 25-OH, Free T4, TSH Test Result Flag Reference Sodium 138 135-145 mmol/L Potassium 4.3 3.3-5.1 mmol/L CL 106 96-108 mmol/L CO2 28 22-29 mmol/L Gap 8 L 12-20 BUN 29 H 9-16 mg/dL Creat 0.88 0.5-1.4 mg/dL EGFR > 60 NOTE: For -[place] individuals, multiply the result by 1.210. Chronic Kidney Disease: Estimated GFR < 60 mL/min/1.73m2 Severe Kidney Disease: Estimated GFR < 15 mL/min/1.73m2 FBS 113 H 60-99 mg/dL A fasting glucose from 100-125 mg/dl is considered impaired (pre-diabetes). CA 9.2 8.4-10.2 mg/dL AST (GOT) 40 H 5-31 U/L ALT (GPT) 15 0-31 U/L Triglyceride 83 <150 mg/dL Desirable Triglyceride: less than 150 mg/dL Borderline High Triglyceride 150-199 mg/dL High Triglyceride: 200-499 mg/dL Very High Triglyceride: greater than or equal to 5OO mg/dL Cholesterol 240 H <200 mg/dL Desirable Cholesterol: less than 200 mg/dL Borderline High Cholesterol: 200-239 mg/dL High Cholesterol: greater than 239 mg/dL LDL Calculated 167 H <100 mg/dL Desirable LDL: less than 100 mg/dL Near Optimal/Above Optimal LDL: 110-129 mg/dL Borderline High LDL: 130-159 mg/dL High LDL: 160-189 mg/dL Very High LDL: greater than or equal to 190 mg/dL HDL 57 >40 mg/dL Desirable HDL: greater than 40 mg/dL Note: This HDL assay may give artificially low results in patients with liver disease. Vit D 25-OH Tot 28.3 L >30 ng/mL Health Based Reference Values* < 20 ng/mL Deficient 20-30 ng/mL Insufficient > 30 ng/mL Sufficient *Johnny CHI. N Engl J Med. 2007;[id number] Care must be taken in interpreting Vitamin D results from different laboratories and methodologies. Published data demonstrated that results from patients undergoing hemodialysis may show a negative bias when tested with various automated 25-OH vitamin D assays when compared to LC-MS/MS. When testing samples from patients whose predominant form of Vitamin D is Vitamin D2, such as patients receiving Vitamin D2 supplementation, results that are subtherapeutic should be confirmed with another method such as LC-MS/MS. Free T4 1.33 0.71-1.85 ng/dL TSH 3rd Gen. 0.86 0.32-4.0 uIU/mL Assessment and Plan Assessment & Plan (1) Acquired hypothyroidism: Code(s): E03.9 - Hypothyroidism, unspecified Plan: Continue with current dose of levothyroxine at 75 mcg daily will recheck thyroid levels again in six-month (2) Dyslipidemia: Code(s): E78.5 - Hyperlipidemia, unspecified Plan: She just started taking Welchol a week ago, continue with it, continue with red yeast rice supplements, and adherence to healthy eating habits and regular exercise. Will repeat another fasting lipid panel in February 2024 (3) Essential hypertension: Code(s): I10 - Essential (primary) hypertension Plan: Blood pressure at goal of less than 130/80. Continue with current medication. Reinforced importance of following a low sodium diet, getting regular exercise, and lowering stress levels. (4) Recurrent UTI: Code(s): N39.0 - Urinary tract infection, site not specified Plan: Currently on prophylactic cephalexin 250 mg 1 capsule taken daily, started by her urology (5) Vitamin D deficiency: Code(s): E55.9 - Vitamin D deficiency, unspecified Plan: Does not want to take any vitamin-D 3 supplements, advised to get at least 15 minutes of sun exposure daily. Orders: Orders Basic Metabolic Panel Fasting 03/07/24 E03.9 - Hypothyroidism, unspecified, E55.9 - Vitamin D deficiency, unspecified, E78.5 - Hyperlipidemia, unspecified, I10 - Essential (primary) hypertension, N39.0 - Urinary tract infection, site not specified Alanine Aminotransferase 03/07/24 E03.9 - Hypothyroidism, unspecified, E55.9 - Vitamin D deficiency, unspecified, E78.5 - Hyperlipidemia, unspecified, I10 - Essential (primary) hypertension, N39.0 - Urinary tract infection, site not specified Complete Blood Count Auto Diff 03/07/24 E03.9 - Hypothyroidism, unspecified, E55.9 - Vitamin D deficiency, unspecified, E78.5 - Hyperlipidemia, unspecified, I10 - Essential (primary) hypertension, N39.0 - Urinary tract infection, site not specified Vitamin D 25-OH Total 03/07/24 E03.9 - Hypothyroidism, unspecified, E55.9 - Vitamin D deficiency, unspecified, E78.5 - Hyperlipidemia, unspecified, I10 - Essential (primary) hypertension, N39.0 - Urinary tract infection, site not spe cified Thyroid Stimulating Hormone 03/07/24 E03.9 - Hypothyroidism, unspecified, E55.9 - Vitamin D deficiency, unspecified, E78.5 - Hyperlipidemia, unspecified, I10 - Essential (primary) hypertension, N39.0 - Urinary tract infection, site not specified Hemoglobin A1c 03/07/24 E03.9 - Hypothyroidism, unspecified, E55.9 - Vitamin D deficiency, unspecified, E78.5 - Hyperlipidemia, unspecified, I10 - Essential (primary) hypertension, N39.0 - Urinary tract infection, site not specified Lipid Panel 03/07/24 E03.9 - Hypothyroidism, unspecified, E55.9 - Vitamin D deficiency, unspecified, E78.5 - Hyperlipidemia, unspecified, I10 - Essential (primary) hypertension, N39.0 - Urinary tract infection, site not specified Aspartate Amino Transferase 03/07/24 E03.9 - Hypothyroidism, unspecified, E55.9 - Vitamin D deficiency, unspecified, E78.5 - Hyperlipidemia, unspecified, I10 - Essential (primary) hypertension, N39.0 - Urinary tract infection, site not specified Free T4 (Free Thyroxine) 03/07/24 E03.9 - Hypothyroidism, unspecified, E55.9 - Vitamin D deficiency, unspecified, E78.5 - Hyperlipidemia, unspecified, I10 - Essential (primary) hypertension, N39.0 - Urinary tract infection, site not specified Coding Level of Care Code Est Pt Level 4 (38626) Diagnoses Acquired hypothyroidism E03.9 Dyslipidemia E78.5 Essential hypertension I10 Recurrent UTI N39.0 Vitamin D deficiency E55.9 Additional Codes Vital Signs *Quality* - Advance Care Planning discussion: Completed/Scanned ([id number]) Vital Signs *Quality* - Time spent: 16-45 minutes ([id number]) CARLO-7 Assessment Billing - CARLO-7 Assessment Tool: CARLO-7 Assessment [id number] ([id number])
== END 2023-10-28 09:28 | disposition home or self-care (01) ==
PROVIDERS: PCP Internal Medicine; Visit Provider Internal Medicine
DX: E03.9 Hypothyroidism, unspecified (principal); E78.5 Hyperlipidemia, unspecified; I10 Essential (primary) hypertension; N39.0 Urinary tract infection, site not specified; E55.9 Vitamin D deficiency, unspecified; Z00.00 Encounter for general adult medical examination without abnormal findings
CPT/HCPCS: 1123F; 99214; 99497

== ENCOUNTER 2024-05-24 06:06 | Outpatient (REF) | payer MEDICARE, OTHER, SELFPAY ==
[2024-05-24 10:04] LABS: MANUAL DIFF FLAG NO
[2024-05-24 10:09] LABS: Basophils Percent Auto 0.4 % (0-2); Eosinophils Absolute Auto 0.1 X10*3/uL (0.0-0.4); Eosinophils Percent Auto 2.1 % (0-4); Hematocrit 35.6 % (37.0-47.0); Imm Gran Abs Auto 0.03 X10*3/uL (0.00-0.03); Imm Gran Pct Auto 0.6 % (0.0-0.4); Lymphocytes Absolute Auto 1.1 X10*3/uL (1.2-4.9); Lymphocytes Percent Auto 20.4 % (20-40); Mean Corpuscular HGB Conc 33.7 g/dl (31.0-35.0); Mean Corpuscular Hemoglobin 32.3 pg (27.0-33.0); Mean Corpuscular Volume 95.7 fL (80.0-98.0); Mean Platelet Volume 11.5 fL (9.4-12.3); Monocytes Absolute Auto 0.8 X10*3/uL (0.1-1.2); Monocytes Percent Auto 14.4 % (2-11); Neutrophils Absolute Auto 3.3 x10*3/uL (2.0-8.3); Neutrophils Percent Auto 62.1 % (45-73); Platelet Count 193 X10*3/uL (160-400); Red Blood Count 3.72 X10*6/uL (4.20-5.50); Red Cell Distribution Width 11.9 % (11.0-16.0); White Blood Count 5.3 X10*3/uL (4.8-10.8)
[2024-05-24 10:24] LABS: Estimated Average Glucose 137 mg/dL; Hemoglobin A1C 143.7742 umol/L; Hemoglobin A1c % 6.4 % (<6.0); Total Hemoglobin (HGBA1C) 3097.8051 umol/L
[2024-05-24 11:21] LABS: Alanine Aminotransferase 11 U/L (0-31); Anion Gap 13 (12-20); Aspartate Amino Transferase 34 U/L (5-31); Blood Urea Nitrogen 20 mg/dL (9-16); Calcium 8.8 mg/dL (8.4-10.2); Carbon Dioxide 26 mmol/L (22-29); Chloride 104 mmol/L (96-108); Cholesterol 185 mg/dL (<200); Estimated Glomerular Filt Rate 56; Glucose Fasting 122 mg/dL (60-99); HDL Cholesterol 43 mg/dL (>40); LDL Cholesterol Calculated 126 mg/dL (<100); Potassium 4.3 mmol/L (3.3-5.1); Sodium 139 mmol/L (135-145); Triglycerides 82 mg/dL (<150)
[2024-05-24 11:35] LABS: Free T4 (Free Thyroxine) 1.46 ng/dL (0.71-1.85); Thyroid Stimulating Hormone 1.15 uIU/mL (0.32-4.0)
== END 2024-05-24 06:07 | disposition home or self-care (01) ==
LOC: HO.HMGCLDS 06:06
PROVIDERS: PCP Internal Medicine; Visit Provider Internal Medicine
DX: E55.9 Vitamin D deficiency, unspecified (principal); N39.0 Urinary tract infection, site not specified; I10 Essential (primary) hypertension; E78.5 Hyperlipidemia, unspecified; E03.9 Hypothyroidism, unspecified; Z13.1 Encounter for screening for diabetes mellitus
CPT/HCPCS: 36415; 80048; 80061; 82306; 83036; 84439; 84443; 84450; 84460; 85025

== ENCOUNTER 2024-06-03 09:10 | Outpatient (AMB) | payer MEDICARE, OTHER, SELFPAY ==
--- NOTE | 2024-06-03 09:14 | AM.OFFVISMDC ---
Intake Vital Signs 06/03/24 09:16 Height 5 ft 4 in Weight 120 lb BMI 20.6 BP 125/52 L Position Sitting Pulse 62 Pulse Source Pulse Oximeter Pulse Oximetry (%) 98 Oxygen Delivery Method Room Air Intake Visit Reasons: SWV G0439 Intake Note: Pt is here today for her SWV Allergies ezetimibe [From ZETIA] Allergy (Severe, Verified 06/03/24 09:28) MUSCLE PAIN Gftwnxi-SRS-ShW Reductase Inhibitor [WUCRVCZ-QXB-MUC REDUCTASE INHIBITOR] Allergy (Severe, Verified 06/03/24 09:28) MUSCLE PAIN nitrofurantoin Allergy (Intermediate, Verified 06/03/24 09:28) Cough Sulfa (Sulfonamide Antibiotics) [SULFA (SULFONAMIDE ANTIBIOTICS)] Allergy (Mild, Verified 06/03/24 09:28) RASH losartan [From COZAAR] Allergy (Unknown, Verified 06/03/24 09:28) UNKNOWN Medication List - Last Reconciled 06/03/24 by Ivelisse Masters MD amlodipine 5 mg PO DAILY aspirin 81 mg PO DAILY carvedilol 12.5 mg PO Q12H cephalexin 250 mg PO ONCE enalapril maleate 5 mg PO DAILY faricimab-svoa (Vabysmo) 6 mg intravitreal Q8W levothyroxine 75 mcg PO DAILY red yeast rice 600 mg PO ONCE HPI SWV G0439 HPI Details SWV ? 89 year old lady with hypertension, hypothyroidism, peripheral vascular disease and coronary artery disease, bilateral Carotid artery stenosis, macular degeneration OD, and Recurrent UTI's presents today for her ? Annual Wellness Visit, subsequent visit. She no longer gets screening mammograms , Bone density screen, Pap smears or colonoscopy screening, her last colonoscopy was done by Dr. Gonzales December 06, 2013 with normal findings. She is up-to-date with her flu shot, Covid vaccine booster, pneumonia vaccination and tetanus diphtheria booster, but had the old Shingles vaccine , hesitant to get the new one .Does not want to get RSV vaccine. She had a normal fasting lipid panel and a fasting blood sugar level done 05/24/2024. .? Medical / Social History Reviewed? Past Medical History ?Yes . ? [place] of Care / Care Team list updated ?Yes . ? Surgical/Hospitalization History ?Yes . ? Current Medications (including OTC and supplements) ?Yes . ? Family History ?Yes . ? Tobacco Control form ?Yes . ? AUDIT-C (Alcohol use) form ?Yes . ? Illicit drug use in Social History ?Yes . ? Current diagnosis of depression? ?No ? Appropriate PHQ2/PHQ9 completed ?Yes . ? Data entered by ?[employer] and reviewed by provider ? Fall Risk ? Fall History? Have you had any falls with injury in the past year? ?No . ? Have you had two or more falls in the past year? ?No . ? Fall Risk Assessment: ?No falls in the past year . ? HRA filled out by the patient, reviewed by Provider and scanned. ? SWV ? Balance? Romberg ?Yes . ? Tandem walk ?with some difficulty but able to do ? Walk and Turn ?Yes . ? Rise from sit to stand ?Yes . ?Vision? Corrective lens ?Yes ? Vision screen ? Up-to-date, currently sees at the [facility] for follow-up on her wet ARMD, OD ?Hearing? Whisper test ?pass . ?Written Plan?Completed. See Patient Documents.? 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 Sister No problems noted. Social History Housing: House Patient Tobacco Use Status: Never used Tobacco e-Cigarette/Vaping Use: Never Used Second Hand Smoke Exposure: No service: No Current occupational status: retired Cognitive needs: No Hearing needs: No Vision needs: Yes Questionnaire Medicare Wellness Checkup What is your age?: 80 or older What gender do you identify with?: female During the past 4 weeks, how much have you been bothered by emotional problems such as feeling anxious, depressed, irritable, sad or downhearted, and blue?: slightly During the past 4 weeks, has your physical & emotional health limited your social activities with family, friends, neighbors, or groups?: not at all During the past 4 weeks, how much bodily pain have you generally had?: very mild pain During the past 4 weeks, was someone available to help you if you needed & wanted help?: yes, as much as I wanted During the past 4 weeks, what was the hardest physical activity you could do for at least 2 minutes?: moderate Can you get to places out of walking distance without help? (For eg., can you travel alone on buses, taxis or drive your car?): Yes Can you go shopping for groceries or clothes without someone's help?: Yes Can you prepare your own meals?: Yes Can you do your housework without help?: Yes Because of any health problems, do you need the help of another person with your personal care needs such as eating, bathing, dressing or getting around the house?: No Can you handle your own money without help?: Yes During the past 4 weeks, how would you rate your health in general?: very good During the past 4 weeks how have things been going for you?: pretty well Are you having difficulties driving your car?: no Do you always fasten your seat belt when you are in a car?: yes, usually During past 4 weeks, have you been bothered by the following: never: Falling or dizzy when standing up, Sexual problems?, Trouble eating well? and Problems using the telephone?, seldom: Teeth or denture problems? and sometimes: Tiredness or fatigue? Have you fallen 2 or more times in the past year?: No Are you afraid of falling?: Yes Are you a smoker?: no During the past 4 weeks, how many drinks of wine, beer, or other alcoholic beverages did you have?: no alcohol at all Do you exercise for about 20 minutes 3 or more times a week?: no, I usually do not exercise this much Have you been given information to help with the following?: yes: Keeping track of your medications? and no: Hazards in your house that might hurt you? How often do you have trouble taking medicines the way you have been told to take them?: I always take medicine as prescribed How confident are you that you can control & manage most of your health problems?: very confident What is your race?: White Mini Mental State Exam (MMSE) Orientation What is the (year) (season) (date) (day) (month)?: year (2023), season (fall), date (06/03/2024), day () and month (may) Where are we (state) (county) (town or city) (hospital) (floor)?: state ([place]), county ([place]), town or city ([place]) and hospital/clinic ([facility]) Score Score: 9 Activity of Daily Living Bathing - sponge bath, tub bath or shower: receives no assistance (gets in/out by self, if usual bathing means Dressing - getting clothes from closets & drawers, including inner/outer garments & fasteners.: gets clothes & gets completely dressed without help Toileting - going to the 'toilet room' for urine/bowel elimination & cleaning self/arranging clothes: goes to toilet room, cleans self, arranges clothes without help Transfer: moves in & out of bed and chair without help (may use support object) Continence: has occasional 'accidents' Feeding: feeds self without help Total Score: 0 Information obtained from: patient Using telephone: independent Traveling: independent Shopping: independent Preparing meals: independent Housework: independent Taking medicine: independent Managing money: independent PHQ-9 Over the last 2 weeks, how often have you been bothered by any of the following problems? 1. Little interest or pleasure in doing things: not at all 2. Feeling down, depressed, or hopeless: not at all 3. Trouble falling or staying asleep, or sleeping too much: several days 4. Feeling tired or having little energy: several days 5. Poor appetite or overeating: not at all 6. Feeling bad about yourself - or that you are a failure or have let yourself or your family down: not at all 7. Trouble concentrating on things, such as reading the newspaper or watching television: not at all 8. Moving or speaking so slowly that other people could have noticed. Or the opposite - being so fidgety or restless that you have been moving around a lot more than usual: not at all 9. Thoughts that you would be better off or of hurting yourself in some way: not at all Total score: 2 Depression Screening Interpretation: Negative Depression Screening Done: Yes [id number] - PHQ-9 Billing: Yes Source: Developed by Drs. Vimal Rosa, Kelsey HendersonCarlos and colleagues, with an educational gely from [facility]. Physical Exam Vital Signs: Last Vital Signs Pulse 62 06/03/24 09:16 BP 125/52 L 06/03/24 09:16 Pulse Ox 98 06/03/24 09:16 Oxygen Delivery Method Room Air 06/03/24 09:16 BMI result Body Mass Index 20.6 Assessment & Plan Assessment & Plan (1) Encounter for subsequent annual wellness visit (AWV) in Medicare patient: Code(s): Z00.00 - Encounter for general adult medical examination without abnormal findings Plan: Medical wellness checklist reviewed, discussed with patient and updated. (2) Age-related macular degeneration, wet, right eye: Comment: sees Dr Kirby Code(s): H35.3210 - Exudative age-related macular degeneration, right eye, stage unspecified Qualifiers: Exudative macular degeneration stage: unspecified stage Qualified Code(s): H35.3210 - Exudative age-related macular degeneration, right eye, stage unspecified (3) Recurrent UTI: Code(s): N39.0 - Urinary tract infection, site not specified (4) Bilateral carotid artery stenosis: Code(s): I65.23 - Occlusion and stenosis of bilateral carotid arteries (5) Peripheral vascular disease: Code(s): I73.9 - Peripheral vascular disease, unspecified (6) Coronary artery disease: Comment: Followed at [facility] by Dr. Braxton Sosa Code(s): I25.10 - Atherosclerotic heart disease of [place] coronary artery without angina pectoris Qualifiers: Coronary Disease-Associated Artery/Lesion type: [place] artery Associated angina: without angina [place] vs. transplanted heart: [place] heart Qualified Code(s): I25.10 - Atherosclerotic heart disease of [place] coronary artery without angina pectoris (7) Essential hypertension: Code(s): I10 - Essential (primary) hypertension (8) Dyslipidemia: Code(s): E78.5 - Hyperlipidemia, unspecified (9) Acquired hypothyroidism: Code(s): E03.9 - Hypothyroidism, unspecified Plan - Essential Hypertension: Continue current management; verify home blood pressure monitoring correlates with readings. - Hyperlipidemia: Discontinue colesevelam; maintain red yeast rice. Repeat lipid profile in six months. - Pre-diabetes: Encourage dietary modifications and exercise to manage blood sugar levels. - Age-related Macular Degeneration: Continue bimonthly injections; monitor visual acuity and retinal status. - Recurrent Urinary Tract Infections: Continue prophylactic cephalexin. - Health Maintenance: Advise vitamin D supplementation trial, considering gastrointestinal tolerance. Discussed potential new shingles vaccination. - Monitor blood pressure regularly at home. - Discontinue colesevelam; try 2000 units of vitamin D daily while ensuring separation from calcium intake. - Regularly consume water to mitigate dehydration. - Maintain healthy diet and physical activity to manage blood glucose and cholesterol levels. - Continue red yeast rice for cholesterol control. - Report any new or worsening symptoms related to eye health, falls, or balance issues. - Schedule cholesterol check and follow-up appointment for early October. - Consider attending senior center classes for balance exercises. - Discuss with a pharmacist about shingles vaccination options if desired. Patient was informed and verbally consented to the use of an ambient scribe for clinic note documentation during this visit. Medications: Discontinued colesevelam (WelChol) must dilute powder in liquid before taking Discontinued Reason: Patient Refused 3,750 mg PO DAILY 30 ea 5RF E78.5 - Hyperlipidemia, unspecified Quality Reporting (2019) Depression/Bipolar (159/160/161/177) PHQ-9: Total score: 2 Coding Level of Care Code Medicare Subsequent (G0439) Diagnoses Encounter for subsequent annual wellness visit (AWV) in Medicare patient Z00.00 Exudative age-related macular degeneration of right eye, unspecified stage H35.3210 Exudative macular degeneration stage: unspecified stage Recurrent UTI N39.0 Bilateral carotid artery stenosis I65.23 Peripheral vascular disease I73.9 Coronary artery disease involving [place] coronary artery of [place] heart without angina pectoris I25.10 Coronary Disease-Associated Artery/Lesion type: [place] artery Associated angina: without angina [place] vs. transplanted heart: [place] heart Essential hypertension I10 Dyslipidemia E78.5 Acquired hypothyroidism E03.9 CPT Codes Advance Care Planning - Advance Care Planning discussion: On file, no changes ([id number]) Advance Care Planning - Time spent: 1-15 minutes, on File ([id number]) Additional Codes PHQ-9 - 56255 - PHQ-9 Billing: Yes ([id number]) Advance Care Planning Advance Care Planning discussion: On file, no changes Date of discussion: 06/03/24 Who was present: patient Forms completed: Health Care Proxy and MOLST Time spent: 1-15 minutes, on File Actual minutes spent: 1
[2024-06-03 09:16] VITALS: BP 125/52; PULSE 62; O2SAT 98; BMI 20.6
== END 2024-06-03 10:41 | disposition home or self-care (01) ==
PROVIDERS: PCP Internal Medicine; Visit Provider Internal Medicine
DX: Z00.00 Encounter for general adult medical examination without abnormal findings (principal); H35.3210 Exudative age-related macular degeneration, right eye, stage unspecified; I73.9 Peripheral vascular disease, unspecified; N39.0 Urinary tract infection, site not specified; I65.23 Occlusion and stenosis of bilateral carotid arteries; I25.10 Atherosclerotic heart disease of native coronary artery without angina pectoris; I10 Essential (primary) hypertension; E78.5 Hyperlipidemia, unspecified; E03.9 Hypothyroidism, unspecified

== ENCOUNTER → 2024-06-03 09:10 | Outpatient (BNVA) | payer MEDICARE, OTHER, SELFPAY | PROVIDERS: PCP Internal Medicine; Visit Provider Internal Medicine | DX: Z00.00 Encounter for general adult medical examination without abnormal findings (principal); H35.3210 Exudative age-related macular degeneration, right eye, stage unspecified; N39.0 Urinary tract infection, site not specified; I65.23 Occlusion and stenosis of bilateral carotid arteries; I73.9 Peripheral vascular disease, unspecified; I25.10 Atherosclerotic heart disease of native coronary artery without angina pectoris; I10 Essential (primary) hypertension; E78.5 Hyperlipidemia, unspecified; E03.9 Hypothyroidism, unspecified | CPT/HCPCS: 96127 ==

== ENCOUNTER 2024-10-28 06:02 | Outpatient (REF) | payer MEDICARE, OTHER, SELFPAY ==
[2024-10-28 10:38] LABS: Estimated Average Glucose 134 mg/dL; Hemoglobin A1C 156.9497 umol/L; Hemoglobin A1c % 6.3 % (<6.0); Total Hemoglobin (HGBA1C) 3426.5616 umol/L
[2024-10-28 11:00] LABS: Alanine Aminotransferase 14 U/L (0-31); Anion Gap 8 (12-20); Aspartate Amino Transferase 30 U/L (5-31); Blood Urea Nitrogen 32 mg/dL (9-16); Calcium 9.1 mg/dL (8.4-10.2); Carbon Dioxide 28 mmol/L (22-29); Chloride 108 mmol/L (96-108); Cholesterol 229 mg/dL (<200); Estimated Glomerular Filt Rate 60; Glucose Fasting 117 mg/dL (60-99); HDL Cholesterol 59 mg/dL (>40); LDL Cholesterol Calculated 152 mg/dL (<100); Potassium 4.3 mmol/L (3.3-5.1); Sodium 140 mmol/L (135-145); Triglycerides 92 mg/dL (<150)
[2024-10-28 11:03] LABS: Free T4 (Free Thyroxine) 1.29 ng/dL (0.71-1.85); Thyroid Stimulating Hormone 1.38 uIU/mL (0.32-4.0)
== END 2024-10-28 06:03 | disposition home or self-care (01) ==
LOC: HO.HMGCLDS 06:02
PROVIDERS: PCP Internal Medicine; Visit Provider Internal Medicine
DX: E55.9 Vitamin D deficiency, unspecified (principal); N39.0 Urinary tract infection, site not specified; I65.23 Occlusion and stenosis of bilateral carotid arteries; I73.9 Peripheral vascular disease, unspecified; I25.10 Atherosclerotic heart disease of native coronary artery without angina pectoris; I10 Essential (primary) hypertension; E78.5 Hyperlipidemia, unspecified; E03.9 Hypothyroidism, unspecified
CPT/HCPCS: 36415; 80048; 80061; 82306; 83036; 84439; 84443; 84450; 84460

== ENCOUNTER 2024-11-03 08:03 | Outpatient (AMB) | payer MEDICARE, OTHER, SELFPAY ==
--- NOTE | 2024-11-03 08:07 | MHC.PC.OV ---
Vital Signs 11/03/24 08:15 Height 5 ft 4 in Weight 122 lb BMI 20.9 BP 134/52 L Position Sitting Respiration 17 Pulse 53 Pulse Source Pulse Oximeter Temp 97.7 F Temp Source Oral Pulse Oximetry (%) 98 Oxygen Delivery Method Room Air Intake Visit Reasons: 5m follow up Intake Note: Pt is here today for her 5mo. 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 Required: No Allergies ezetimibe [From ZETIA] Allergy (Severe, Verified 11/03/24 08:23) MUSCLE PAIN Ocnhari-QGZ-HtF Reductase Inhibitor [JYXNBLU-VNE-HUT REDUCTASE INHIBITOR] Allergy (Severe, Verified 11/03/24 08:23) MUSCLE PAIN nitrofurantoin Allergy (Intermediate, Verified 11/03/24 08:23) Cough Sulfa (Sulfonamide Antibiotics) [SULFA (SULFONAMIDE ANTIBIOTICS)] Allergy (Mild, Verified 11/03/24 08:23) RASH losartan [From COZAAR] Allergy (Unknown, Verified 11/03/24 08:23) UNKNOWN Medication List - Last Reconciled 11/03/24 by Ivelisse Masters MD amlodipine 5 mg PO DAILY aspirin 81 mg PO DAILY carvedilol 12.5 mg PO Q12H cephalexin 250 mg PO ONCE enalapril maleate 5 mg PO DAILY estradiol 0.01%(0.1mg/gram) 1 g vaginal 3XW faricimab-svoa (Vabysmo) 6 mg intravitreal Q8W levothyroxine 75 mcg PO DAILY red yeast rice 600 mg PO ONCE Tobacco use date assessed: 11/03/24 Fall risk assessment: No Falls in past year Last assessed Fall Risk: 11/03/24 Dental Screening Dental Screen Date: 11/03/24 Did you have a dental visit in the last 12 months?: Yes Did you have a dental problem in the last 6 months where you did not have access to dental care?: No Was dental information given to patient?: Patient has dentist HPI 5m follow up HPI Details 89 year old lady with hypertension, hypothyroidism, peripheral vascular disease and coronary artery disease, bilateral Carotid artery stenosis, macular degeneration OD, and Recurrent UTI's presents today for her follow up eating well, compliant with taking her medications, but admits to eating a lot of bread and crackers. She also states that she has not been as active as she was during the summer time. Recent fasting lab showed glucose, electrolytes, vitamin-D low, renal function, liver enzymes and thyroid levels are within normal limits, but total cholesterol and LDL cholesterol is elevated. 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 Sister No problems noted. Social History Housing: House Patient Tobacco Use Status: Never used Tobacco e-Cigarette/Vaping Use: Never Used Second Hand Smoke Exposure: No service: No Current occupational status: retired Cognitive needs: No Hearing needs: No Vision needs: Yes Questionnaire PHQ-9 Over the last 2 weeks, how often have you been bothered by any of the following problems? 1. Little interest or pleasure in doing things: not at all 2. Feeling down, depressed, or hopeless: not at all 3. Trouble falling or staying asleep, or sleeping too much: not at all 4. Feeling tired or having little energy: not at all 5. Poor appetite or overeating: not at all 6. Feeling bad about yourself - or that you are a failure or have let yourself or your family down: not at all 7. Trouble concentrating on things, such as reading the newspaper or watching television: not at all 8. Moving or speaking so slowly that other people could have noticed. Or the opposite - being so fidgety or restless that you have been moving around a lot more than usual: not at all 9. Thoughts that you would be better off or of hurting yourself in some way: not at all Total score: 0 Depression Screening Interpretation: Negative Depression Screening Done: Yes 89181 - PHQ-9 Billing: Yes Source: Developed by Drs. Vimal Rosa, Carlos Jolly and colleagues, with an educational gely from [employer]. Thrive Questionnaire Date Thrive assessed: 11/03/24 I am a: Patient What is your living situation today?: I have a steady place to live Within the past 12 months, did the food you bought not last and you didn't have the money to get more?: Never true Within the past 12 months, did you worry whether your food would run out before you got money to buy more?: Never true Do you have trouble paying for medicines?: No Do you have trouble getting transportation to medical appointments?: No Do you have trouble paying your heating and electricity bill?: No Do you have trouble taking care of your child, family member or friend?: No Do you have trouble with day-to-day activities such as bathing, preparing meals, shopping, managing finances, etc.?: No Are you currently unemployed and looking for a job?: No Are you interested in more education?: No THRIVE Score: 0 AUDIT C Alcohol Use Questionnaire (AUDIT-C) 1. How often do you have a drink containing alcohol?: Never Total Score: 0 CARLO-7 AMB Questionnaire CARLO-7 Date CARLO - 7 assessed: 11/03/24 Feeling nervous, anxious, or on edge: 0 = Not at all Not being able to stop or control worryin = Not at all Worrying too much about different things: 0 = Not at all Trouble relaxin = Not at all Being so restless that it is hard to sit still: 0 = Not at all Becoming easily annoyed or irritable: 0 = Not at all Feeling afraid as if something awful might happen: 0 = Not at all Total CARLO-7 score (0-4 normal; 5-9 mild; 10-14 moderate; 15-21 severe): 0 Source: Developed by Kelsey Rossi Kurt Kroenke and colleagues, with an educational gely from [employer]. CARLO-7 Assessment Billing CARLO-7 Assessment Tool: CARLO-7 Assessment 72426 Review of Systems Const Denies fatigue, Denies fever(s) and Denies headache(s) Eyes Details: Currently being followed by Dr. Miguel Kirby Denies change in vision ENT Denies dizziness, Denies headache(s), Denies nasal congestion, Denies nasal discharge and Denies sore throat Card Denies chest pain, Denies lightheadedness, Denies palpitations and Denies dyspnea Resp Denies chest congestion, Denies cough, Denies dyspnea and Denies wheezing GI Denies abdominal pain, Denies change in bowel habits and Denies heartburn Details: Occasional dysuria at end of urination, uses estradiol vaginal cream which has been helping relieve Denies urinary frequency and Denies urinary urgency Musc Denies arthralgias and Reports stiffness Skin/Breast Denies lesions and Denies rash Neuro Denies dizziness and Denies headache(s) Psych Reports no additional complaints Endo Denies fatigue, Denies polydipsia, Denies polyuria and Denies palpitations Torsten/Lymph Denies easy bruising Aller/Immun Denies seasonal rhinorrhea and Denies wheezing Physical exam (Primary Care) Vital Signs: Last Vital Signs Temp 97.7 F 11/03/24 08:15 Pulse 53 11/03/24 08:15 Resp 17 11/03/24 08:15 BP 134/52 L 11/03/24 08:15 Pulse Ox 98 11/03/24 08:15 Oxygen Delivery Method Room Air 11/03/24 08:15 BMI result Body Mass Index 20.9 Tobacco/Smoking Status: Tobacco use Status Tobacco use date assessed 11/03/24 11/03/24 08:18 Patient Tobacco Use Status Never used Tobacco 11/03/24 08:08 e-Cigarette/Vaping Use Never Used 11/03/24 08:08 PHQ-9: PHQ-9 Score PHQ-9: Total score 0 11/03/24 08:25 Depression Screening Interpretation: Negative Thrive Assessment: Date of Thrive Assessment Date Thrive assessed 11/03/24 11/03/24 08:22 Const Other: Alert oriented x3, no acute distress noted ambulatory normal gait [facility] General nose exam: Normal external nose present Face and sinus: Yes face symmetric Mouth: oropharynx normal and moist mucous membranes Eyes General: appearance normal, both eyes and all related structures Neck Neck: Yes full ROM, Yes no lymphadenopathy and Yes supple Resp Auscultation: clear to auscultation bilaterally Cardio Other: S1-S2 present regular rate and rhythm GI Palpation (GI): Soft to palpation, nontender, no guarding and no masses General: Yes no CVA tenderness Back/Spine/Pelvis Back: no CVA tenderness and No back tenderness Skin General skin exam: no rashes or lesions noted Neuro General: gait normal, tone normal, moves all extremities, Normal light touch and pain sensation, no focal motor deficits and CN's II-XI intact bilaterally Extrem General: Yes full ROM, Yes no joint enlargement, Yes no pedal edema, Yes no calf tenderness and Yes normal gait Psych Appearance: grossly normal and well kempt Mental Status: mental status grossly normal Speech and movement: Normal speech and movement present Affect: normal affect Results Reviewed Results Reviewed: Laboratory Tests 10/28/24 06:07 Estimat Average Glucose 134 Hemoglobin A1c % 6.3 H Name: Luz Kaur Age/Sex: 89/F : 1935 Unit#: [id number] Attend Dr: Ivelisse Masters MD Re10/28/24 Status: DEP REF Location: [facility] Disch: SPEC : [id number] JAYLA: 10/28/24 STATUS: COMP REQ : [id number] RECD: 10/28/[address]: Ivelisse Masters MD COMP: 10/28/24 ENTERED: 10/28/24-[address]: ORDERED: Met Prof Fast, AST, ALT, Lipid Panel, Vitamin D 25-OH, Free T4, TSH Test Result Flag Reference Sodium 140 135-145 mmol/L Potassium 4.3 3.3-5.1 mmol/L CL 108 96-108 mmol/L CO2 28 22-29 mmol/L Gap 8 L 12-20 BUN 32 H 9-16 mg/dL Creat 0.89 0.5-1.4 mg/dL eGFR 60 Chronic Kidney Disease: Estimated GFR < 60 mL/min/1.73m2 Severe Kidney Disease: Estimated GFR < 15 mL/min/1.73m2 FBS 117 H 60-99 mg/dL A fasting glucose from 100-125 mg/dl is considered impaired (pre-diabetes). CA 9.1 8.4-10.2 mg/dL AST (GOT) 30 5-31 U/L ALT (GPT) 14 0-31 U/L Triglyceride 92 <150 mg/dL Desirable Triglyceride: less than 150 mg/dL Borderline High Triglyceride 150-199 mg/dL High Triglyceride: 200-499 mg/dL Very High Triglyceride: greater than or equal to 5OO mg/dL Cholesterol 229 H <200 mg/dL Desirable Cholesterol: less than 200 mg/dL Borderline High Cholesterol: 200-239 mg/dL High Cholesterol: greater than 239 mg/dL LDL Calculated 152 H <100 mg/dL Desirable LDL: less than 100 mg/dL Near Optimal/Above Optimal LDL: 110-129 mg/dL Borderline High LDL: 130-159 mg/dL High LDL: 160-189 mg/dL Very High LDL: greater than or equal to 190 mg/dL HDL 59 >40 mg/dL Desirable HDL: greater than 40 mg/dL Note: This HDL assay may give artificially low results in patients with liver disease. Vitamin D 25-OH 50.0 >30 ng/mL Health Based Reference Values* < 20 ng/mL Deficient 20-30 ng/mL Insufficient > 30 ng/mL Sufficient *Johnny CHI. N Engl J Med. 2007;357:266-280 There is no well-established upper level of normal vitamin D levels. Some laboratories use 50 ng/mL as an upper limit of normal. However, toxicity is patient-dependent and may occur at any level. Careful correlation with the patient's presentation is necessary and, if there is concern for vitamin D toxicity, treatment should be considered irrespective of the serum level. Care must be taken in interpreting Vitamin D results from different laboratories and methodologies. Published data demonstrated that results from patients undergoing hemodialysis may show a negative bias when tested with various automated 25-OH vitamin D assays when compared to LC-MS/MS. When testing samples from patients whose predominant form of Vitamin D is Vitamin D2, such as patients receiving Vitamin D2 supplementation, results that are subtherapeutic should be confirmed with another method such as LC-MS/MS. Free T4 1.29 0.71-1.85 ng/dL TSH 3rd Gen. 1.38 0.32-4.0 uIU/mL TSH 3rd Generation ([facility]) Coding Level of Care Code Est Pt Level 4 (53072) Complex EM visit Add On G2211 Diagnoses Acquired hypothyroidism E03.9 Dyslipidemia E78.5 Essential hypertension I10 Impaired fasting glucose R73.01 Additional Codes PHQ-9 - 50789 - PHQ-9 Billing: Yes ([id number]) CARLO-7 Assessment Billing - CARLO-7 Assessment Tool: CARLO-7 Assessment 11012 ([id number]) Assessment & Plan Assessment & Plan (1) Acquired hypothyroidism: Code(s): E03.9 - Hypothyroidism, unspecified Category: Medical Plan: Latest thyroid levels are within normal limits, feels well on current dose of levothyroxine, will continue on 75 mcg daily (2) Dyslipidemia: Code(s): E78.5 - Hyperlipidemia, unspecified Category: Medical Plan: Latest fasting lipids showed elevated total cholesterol and LDL cholesterol. Advised to cut back on eating a lot of processed foods, eat more fruits and vegetables, lean meat, switch from whole wheat to whole grain bread, stay active exercise regularly and continue with taking red yeast rice (3) Essential hypertension: Code(s): I10 - Essential (primary) hypertension Category: Medical Plan: Blood pressure at goal of less than 130/80. Continue with current medication. Reinforced importance of following a low sodium diet, getting regular exercise, and lowering stress levels. (4) Impaired fasting glucose: Code(s): R73.01 - Impaired fasting glucose Category: Medical Plan: Latest thyroid levels are within normal limits, feels well on current dose of levothyroxine, will continue on 75 mcg daily Orders: Orders Lipid Panel 05/30/25 E03.9 - Hypothyroidism, unspecified, E78.5 - Hyperlipidemia, unspecified, I10 - Essential (primary) hypertension, I25.10 - Atherosclerotic heart disease of [place] coronary artery without angina pectoris, I65.23 - Occlusion and stenosis of bilateral carotid arteries Vitamin D 25-OH Total 05/30/25 E03.9 - Hypothyroidism, unspecified, E78.5 - Hyperlipidemia, unspecified, I10 - Essential (primary) hypertension, I25.10 - Atherosclerotic heart disease of [place] coronary artery without angina pectoris, I65.23 - Occlusion and stenosis of bilateral carotid arteries Aspartate Amino Transferase 05/30/25 E03.9 - Hypothyroidism, unspecified, E78.5 - Hyperlipidemia, unspecified, I10 - Essential (primary) hypertension, I25.10 - Atherosclerotic heart disease of [place] coronary artery without angina pectoris, I65.23 - Occlusion and stenosis of bilateral carotid arteries Hemoglobin A1c 05/30/25 E03.9 - Hypothyroidism, unspecified, E78.5 - Hyperlipidemia, unspecified, I10 - Essential (primary) hypertension, I25.10 - Atherosclerotic heart disease of [place] coronary artery without angina pectoris, I65.23 - Occlusion and stenosis of bilateral carotid arteries Free T4 (Free Thyroxine) 05/30/25 E03.9 - Hypothyroidism, unspecified, E78.5 - Hyperlipidemia, unspecified, I10 - Essential (primary) hypertension, I25.10 - Atherosclerotic heart disease of [place] coronary artery without angina pectoris, I65.23 - Occlusion and stenosis of bilateral carotid arteries Alanine Aminotransferase 05/30/25 E03.9 - Hypothyroidism, unspecified, E78.5 - Hyperlipidemia, unspecified, I10 - Essential (primary) hypertension, I25.10 - Atherosclerotic heart disease of [place] coronary artery without angina pectoris, I65.23 - Occlusion and stenosis of bilateral carotid arteries Basic Metabolic Panel Fasting 05/30/25 E03.9 - Hypothyroidism, unspecified, E78.5 - Hyperlipidemia, unspecified, I10 - Essential (primary) hypertension, I25.10 - Atherosclerotic heart disease of [place] coronary artery without angina pectoris, I65.23 - Occlusion and stenosis of bilateral carotid arteries Thyroid Stimulating Hormone 05/30/25 E03.9 - Hypothyroidism, unspecified, E78.5 - Hyperlipidemia, unspecified, I10 - Essential (primary) hypertension, I25.10 - Atherosclerotic heart disease of [place] coronary artery without angina pectoris, I65.23 - Occlusion and stenosis of bilateral carotid arteries
--- OUTSIDE RECORDS SUMMARY | 2024-11-03 08:10 | XMS_ITS | Patient Health Record ---
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 Name Role Phone Sonam MARTINEZ, Ivelisse Syed Primary Care Provider Un available Black, Jane Unavailable [phone] Allergies Allergen (clinical drug ingredient) Drug/Non Drug Allergy documented on EMR Reaction Allergy Type Onset Date Status sulfamethoxazole / trimethoprim Bactrim rash Drug Allergy Active losartan Losartan unknown Drug Allergy Active Substance with 3-cqidhsc-9-methylglut aryl-coenzyme A reductase inhibitor mechanism of action (substance) Statins muscle pain Drug Allergy Active Substance with sulfonamide structure and antibacterial mechanism of action (substance) Sulfa Antibiotics rash Drug Allergy Active sulfamethoxazole Sulfamethoxazole unknown Drug Allergy Active Reason For Referral No Information Medications Medication SIG (Take, Route, Frequency, Duration) Notes Start Date End Date Status Enalapril Maleate 5 MG as directed Orally hypertension Active Zetia Unknown Levothyroxine Sodium 75 MCG as directed Orally low thyroid Active Colesevelam HCl Unkn own Aspir-81 heart Active Vitamin B12 Unknown Red Yeast Rice cholesterol Act sera Vrtfgw-A74-[place]ed[place]u Factor Unknown Lyrica Not-Taking vitamin D Unknown Gabapentin Not-Takin g Folic Acid Unknown carBAMazepine Not-Hank jeong Aflibercept 2 MG/0.05ML as directed Intravitreal Active OXcarbazepine Not-Hank jeong Carvedilol 12.5 MG 1 tablet with food Orally cholesteral Active LORazepam Not-Taking Colestipol HCl 5 GM as directed Orally Active Metoprolol Tartrate Not-Taking amLODIPine Besylate 5 MG as directed Orally angina Active Enalapril-hydroCHLORO thiazide Not-Taking Social History Tobacco Use: Social History Observation Description Date Details (start date - stop date) Never Smoker NA - NA Tobacco Use/Smoking Question Answer Notes Are you a: nonsmoker Additional Findings: Tobacco Non-User Current no n-smoker Alcohol Screen Question Answer Notes Did you have a drink containing alcohol in the p ast year? No Points 0 Interpretation Negative Tobacco use other than smoking: Question Answer Notes Are you an other tobacco user? No Problems Problem Type SNOMED Code ICD Code Onset Dates Problem Status W/U Status Risk Notes Problem Acquired hammer toe of right foot (9672996734986906) Other hammer toe(s) (acquired), right foot (M20.41) Active confirmed Problem Acquired hammer toe of left foot (6425925909084283) Other hammer toe(s) (acquired), left foot (M20.42) Active confirmed Problem Atherosclerosis of [place] arteries of the extremities (988692849588627) Unspecified atherosclerosis of [place] arteries of extremities, bilateral legs (I70.203) Active confirmed Problem Acquired hammer toe of right foot (3509427371274869) Other hammer toe(s) (acquired), right foot (M20.41) Active confirmed Problem Acquired hammer toe of left foot (8115751730706082) Other hammer toe(s) (acquired), left foot (M20.42) Active confirmed Problem Localized, primary osteoarthritis of the ankle and/or foot (089900526) Arthritis of joint of lesser toe, left (M19.072) Active confirmed Problem Arthritis of joe nt of lesser toe, right (M19.071) Active confirmed Plan Of Treatment Pending Test Test Name Order Date X ray : Foot, right 2V 12/05/2022 [id number] NAIL, 6 OR MORE 03/20/2023 [id number] NAIL, 6 OR MORE 10/24/2016 [id number] NAIL, 6 OR MORE 01/17/2017 [id number] NAIL, 6 OR MORE 09/01/2017 [id number] NAIL, 6 OR MORE 01/19/2018 [id number] NAIL, 1-5 12/05/2022 [id number] Plate 12/05/2022 [id number] SKIN LESIONS, 2 TO 4 03/20/20 23 [id number] SKIN LESIONS, 2 TO 4 01/20/20 18 Insurance Providers Payer Name Payer Address Payer Phone Subscriber Number Group Number Insured Name Patient Relationship to Insured Coverage Start Date Coverage End Date Medicare National [facility] [address] [place] [address] [phone] [id number] Luz Kaur Self - patient is the insured [place] Ricardo [address] [place] [address] [id number] Luz Kaur Self - patient is the insured Medical (General) History Medical History History ICD Code Angina Cataracts Chicken pox Cholesterol colon cancer Heart condition Hypothyroidism Hyperlipidemia Hyperglycemia Hypertension Osteopenia Peripheral vascular disease Coronary artery disease Dyslipidemia Heart disease Menopause gingivitis retinal hemorrhage of right eye Carotid artery stenosis Macular degeneration Vitamin D deficiency Anxiety Cancer Glaucoma Poor circulation thyroid Measles Surgical History Surgery Date(Month/Year) stent insertion Colon 02/19/91 Tregeminal neuralgia 05/21/2016 brain surgery 05/21/2016 melanoma excision right lower leg 2017 Hospitalization History Reason Date(Month/Year)
[2024-11-03 08:15] VITALS: BP 134/52; PULSE 53; RESP 17; TEMP 36.5; O2SAT 98; BMI 20.9
== END 2024-11-03 09:06 | disposition home or self-care (01) ==
LOC: HO.HMCC 08:03
PROVIDERS: PCP Internal Medicine; Visit Provider Internal Medicine
DX: E03.9 Hypothyroidism, unspecified (principal); E78.5 Hyperlipidemia, unspecified; I10 Essential (primary) hypertension; R73.01 Impaired fasting glucose

== ENCOUNTER → 2024-11-03 08:03 | Outpatient (BNVA) | payer MEDICARE, OTHER, SELFPAY | PROVIDERS: PCP Internal Medicine; Visit Provider Internal Medicine | DX: E03.9 Hypothyroidism, unspecified (principal); E78.5 Hyperlipidemia, unspecified; I10 Essential (primary) hypertension; R73.01 Impaired fasting glucose | CPT/HCPCS: 96127; 99212 ==

== ENCOUNTER 2025-05-18 06:01 | Outpatient (REF) | payer MEDICARE, OTHER, SELFPAY ==
[2025-05-18 11:33] LABS: Alanine Aminotransferase 10 U/L (0-31); Anion Gap 9 (12-20); Aspartate Amino Transferase 30 U/L (5-31); Blood Urea Nitrogen 30 mg/dL (9-16); Calcium 9.1 mg/dL (8.4-10.2); Carbon Dioxide 26 mmol/L (22-29); Chloride 108 mmol/L (96-108); Cholesterol 226 mg/dL (<200); Estimated Glomerular Filt Rate 52; HDL Cholesterol 54 mg/dL (>40); Potassium 4.4 mmol/L (3.3-5.1); Sodium 139 mmol/L (135-145); Triglycerides 101 mg/dL (<150)
[2025-05-18 11:44] LABS: Free T4 (Free Thyroxine) 1.29 ng/dL (0.71-1.85); Thyroid Stimulating Hormone 1.67 uIU/mL (0.32-4.0)
--- OUTSIDE RECORDS SUMMARY | 2025-05-18 14:37 | XMS_ITS | Patient Health Record ---
Author Organization [facility] Address [address] [address] Care Team Providers Care Kindergartners Helper Name Role Phone Sonam MARTINEZ, Ivelisse Syed Primary Care Provider Un available Black, Jane Unavailable [phone] Allergies Allergen (clinical drug ingredient) Drug/Non Drug Allergy documented on EMR Reaction Allergy Type Onset Date Status sulfamethoxazole / trimethoprim Bactrim rash Drug Allergy Active losartan Losartan unknown Drug Allergy Active Substance with 5-uieeruc-5-methylglut aryl-coenzyme A reductase inhibitor mechanism of action [...] Unknown Red Yeast Rice cholesterol Act sera Ywtsuw-L91-Muddpytsf Factor Unknown Lyrica Not-Taking vitamin D Unknown [...] Problem Status W/U Status Risk Notes Problem Information temporarily unavailable Other hammer toe(s) (acquired), right foot (M20.41) Active confirmed Problem Information temporarily unavailable Other hammer toe(s) (acquired), left foot (M20.42) Active confirmed Problem Information temporarily unavailable Unspecified atherosclerosis of [place] arteries of extremities, bilateral legs (I70.203) Active confirmed Problem Information temporarily unavailable Other hammer toe(s) (acquired), right foot (M20.41) Active confirmed Problem Information temporarily unavailable Other hammer toe(s) (acquired), left foot (M20.42) Active confirmed Problem Information temporarily unavailable Arthritis of joint of lesser toe, left (M19.072) Active confirmed Problem Information temporarily unavailable Arthritis of joint of lesser toe, right (M19.071) Active confirmed Plan Of Treatment Pending Test Test Name Order Date X ray : Foot, right 2V 12/05/2022 [id number] NAIL, 6 OR MORE 03/20/2023 [id number] NAIL, 6 OR MORE 10/24/2016 [id number] NAIL, 6 OR MORE 01/17/2017 [id number] NAIL, 6 OR MORE 09/01/2017 [id number] NAIL, 6 OR MORE 01/19/2018 [id number] NAIL, 1-5 12/05/2022 [id number] Plate 12/05/2022 [id number] SKIN LESIONS, 2 TO 4 03/20/20 23 [id number] SKIN LESIONS, 2 TO 4 01/20/20 18 Insurance Providers Payer Name Payer Address Payer Phone Subscriber Number Group Number Insured Name Patient Relationship to Insured Coverage Start Date Coverage End Date Medicare [employer] [address] [place] [address] [id number] Luz Kaur Self - patient is the insured [facility] [address] [place] [address] [phone] [id number] Natasha Luz Self - patient is the insured Medical [...]
== END 2025-05-18 06:02 | disposition home or self-care (01) ==
LOC: HO.HMGCLDS 06:01
PROVIDERS: PCP Internal Medicine; Visit Provider Internal Medicine
DX: I10 Essential (primary) hypertension (principal); I65.23 Occlusion and stenosis of bilateral carotid arteries; I25.10 Atherosclerotic heart disease of native coronary artery without angina pectoris; E78.5 Hyperlipidemia, unspecified; E03.9 Hypothyroidism, unspecified; Z13.1 Encounter for screening for diabetes mellitus; Z13.21 Encounter for screening for nutritional disorder
CPT/HCPCS: 36415; 80048; 80061; 82306; 83036; 84439; 84443; 84450; 84460

== ENCOUNTER 2025-06-07 09:18 | Outpatient (AMB) | payer MEDICARE, OTHER, SELFPAY ==
[2025-06-07 10:00] VITALS: BP 140/62; PULSE 56; RESP 16; TEMP 36.6; O2SAT 99; BMI 21.6
--- NOTE | 2025-06-07 10:00 | A.OFFVIS_ITS ---
Intake Vital Signs 06/07/25 10:00 Height 5 ft 4 in Weight 126 lb BMI 21.6 BP 140/62 H Blood Pressure Location Lt brachial Position Sitting Respiration 16 Pulse 56 Pulse Source Pulse Oximeter Temp 97.9 F Temp Source Oral Pulse Oximetry (%) 99 Oxygen Delivery Method Room Air Intake Visit Reasons: AWV Intake Note: Pt is here today for her AWV Facilities Operations Technician Required: No Allergies ezetimibe (From ZETIA) Allergy (Severe, Verified 06/09/25 16:50) MUSCLE PAIN Cxzrpul-YTS-CqE Reductase Inhibitor (BYCAILX-NVG-NMP REDUCTASE INHIBITOR) Allergy (Severe, Verified 06/09/25 16:50) MUSCLE PAIN nitrofurantoin Allergy (Intermediate, Verified 06/09/25 16:50) Cough Sulfa (Sulfonamide Antibiotics) (SULFA (SULFONAMIDE ANTIBIOTICS)) Allergy (Mild, Verified 06/09/25 16:50) RASH losartan (From COZAAR) Allergy (Unknown, Verified 06/09/25 16:50) UNKNOWN Medication List - Last Reconciled 06/09/25 by Ivelisse Masters MD amlodipine 5 mg PO DAILY aspirin 81 mg PO DAILY carvedilol 12.5 mg PO Q12H cephalexin 250 mg PO ONCE enalapril maleate 5 mg PO DAILY estradiol 0.01%(0.1mg/gram) 1 g vaginal 3XW faricimab-svoa (Vabysmo) 6 mg intravitreal Q8W levothyroxine 75 mcg PO DAILY red yeast rice 600 mg PO ONCE HPI AWV HPI Details SWV ? 89 year old lady with past medical history of hypertension, hypothyroidism, peripheral vascular disease , coronary artery disease, bilateral Carotid artery stenosis, macular degeneration OD, and Recurrent UTI's , presents today for her ? Annual Wellness Visit, subsequent visit. She no longer gets screening mammograms , osteoporosis screening, Pap smears or colonoscopy screening,. Her last colonoscopy was done by Dr. Gonzales December 06, 2013 with normal findings. She is up-to-date with her flu shot, and pneumonia vaccination, but has n ot yet had her COVID booster, RSV or shingles vaccine She had a normal fasting lipid panel and a fasting blood sugar level done 05/18/2025. .? Medical / Social History Rev iewed? Past Medical History ?Yes . ? [place] of Care / Care Team list updated ?Yes . ? Surgical/Hospitalization History ?Yes . ? Current Medications (including OTC and supplements) ?Yes . ? Family History ?Yes . ? Tobacco Control form ?Yes . ? AUDIT-C (Alcohol use) form ?Yes . ? Illicit drug use in Social History ?Yes . ? Current diagnosis of depression? ?No ? Appropriate PHQ2/PHQ9 completed ?Yes . ? Data entered by ?Field Tech and reviewed by provider ? Fall Risk ? Fall History? Have you had any falls with injury in the past year? ?No . ? Have you had two or more falls in the past year? ?No . ? Fall Risk Assessment: ?No falls in the past year . ? HRA filled out by the patient, reviewed by Provider and scanned. ? SWV ? Balance? Romberg ?negative ? Tandem walk ?with some difficulty but able to do ? Walk and Turn ?Yes . ? Rise from sit to stand ?Yes . ?Vision? Corrective lens ?Yes ? Vision screen ? Up-to-date, currently sees at the [facility] for follow-up on her wet ARMD, OD ?Hearing? Whisper test ?pass . ?Written Plan?Completed. See Patient Documents.? 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 Sister No problems noted. Social History Housing: House Patient Tobacco Use Status: Never used Tobacco e-Cigarette/Vaping Use: Never Used Second Hand Smoke Exposure: No service: No Current occupational status: retired Cognitive needs: No Hearing needs: No Vision needs: Yes Questionnaire Medicare Wellness Checkup What is your age?: 80 or older What gender do you identify with?: female During the past 4 weeks, how much have you been bothered by emotional problems such as feeling anxious, depressed, irritable, sad or downhearted, and blue?: not at all During the past 4 weeks, has your physical & emotional health limited your social activities with family, friends, neighbors, or groups?: not at all During the past 4 weeks, how much bodily pain have you generally had?: mild pain During the past 4 weeks, was someone available to help you if you needed & wanted help?: yes, as much as I wanted During the past 4 weeks, what was the hardest physical activity you could do for at least 2 minutes?: moderate Can you get to places out of walking distance without help? (For eg., can you travel alone on buses, taxis or drive your car?): Yes Can you go shopping for groceries or clothes without someone's help?: Yes Can you prepare your own meals?: Yes Can you do your housework without help?: Yes Because of any health problems, do you need the help of another person with your personal care needs such as eating, bathing, dressing or getting around the house?: No Can you handle your own money without help?: Yes During the past 4 weeks, how would you rate your health in general?: very good During the past 4 weeks how have things been going for you?: very well; could hardly better Are you having difficulties driving your car?: no Do you always fasten your seat belt when you are in a car?: yes, usually During past 4 weeks, have you been bothered by the following: never: Falling or dizzy when standing up, Sexual problems?, Trouble eating well? and Problems using the telephone? and sometimes: Teeth or denture problems? and Tiredness or fatigue? Have you fallen 2 or more times in the past year?: No Are you afraid of falling?: No Are you a smoker?: no During the past 4 weeks, how many drinks of wine, beer, or other alcoholic beverages did you have?: no alcohol at all Do you exercise for about 20 minutes 3 or more times a week?: no, I usually do not exercise this much Have you been given information to help with the following?: yes: Hazards in your house that might hurt you? and yes: Keeping track of your medications? How often do you have trouble taking medicines the way you have been told to take them?: I always take medicine as prescribed How confident are you that you can control & manage most of your health problems?: very confident What is your race?: White Mini Mental State Exam (MMSE) Orientation What is the (year) (season) (date) (day) (month)?: year (2024), season (Fall), date (06/07/25), day (Friday) and month () Where are we (state) (county) (town or city) (hospital) (floor)?: state ([facility]), county ([place]), town or city ([place]) and hospital/clinic ([facility]) Score Score: 9 Activity of Daily Living Bathing - sponge bath, tub bath or shower: receives no assistance (gets in/out by self, if usual bathing means Dressing - getting clothes from closets & drawers, including inner/outer garments & fasteners.: gets clothes & gets completely dressed without help Toileting - going to the 'toilet room' for urine/bowel elimination & cleaning self/arranging clothes: goes to toilet room, cleans self, arranges clothes without help Transfer: moves in & out of bed and chair without help (may use support object) Continence: has occasional 'accidents' Feeding: feeds self without help Total Score: 0 Information obtained from: patient Using telephone: independent Traveling: independent Shopping: independent Preparing meals: independent Housework: independent Taking medicine: independent Managing money: independent PHQ-9 Over the last 2 weeks, how often have you been bothered by any of the following problems? 1. Little interest or pleasure in doing things: not at all 2. Feeling down, depressed, or hopeless: not at all 3. Trouble falling or staying asleep, or sleeping too much: several days 4. Feeling tired or having little energy: not at all 5. Poor appetite or overeating: not at all 6. Feeling bad about yourself - or that you are a failure or have let yourself or your family down: not at all 7. Trouble concentrating on things, such as reading the newspaper or watching television: not at all 8. Moving or speaking so slowly that other people could have noticed. Or the opposite - being so fidgety or restless that you have been moving around a lot more than usual: not at all 9. Thoughts that you would be better off or of hurting yourself in some way: not at all Total score: 1 Depression Screening Interpretation: Negative Depression Screening Done: Yes 71690 - PHQ-9 Billing: Yes Source: Developed by Drs. Vimal Rosa, Kelsey Henderson, Carlos Mejias and colleagues, with an educational gely from [employer]. Physical Exam Vital Signs: Last Vital Signs Temp 97.9 F 06/07/25 10:00 Pulse 56 06/07/25 10:00 Resp 16 06/07/25 10:00 BP 140/62 H 06/07/25 10:00 Pulse Ox 99 06/07/25 10:00 Oxygen Delivery Method Room Air 06/07/25 10:00 BMI result Body Mass Index 21.6 Results Reviewed Results Reviewed: Name: Luz Kaur Age/Sex: 89/F : 1935 Unit#: [id number] Attend Dr: Ivelisse Masters MD Re05/18/25 Status: DEP [facility]: SPEC : [id number] JAYLA: 05/18/25 STATUS: COMP REQ : [id number] RECD: 05/18/[address]: Ivelisse Masters MD COMP: 05/18/25 ENTERED: 05/18/[address] [facility] [address]: ORDERED: Met Prof Fast, AST, ALT, Lipid Panel, Vitamin D 25-OH, Free T4, TSH Test Result Flag Reference Sodium 139 135-145 mmol/L Potassium 4.4 3.3-5.1 mmol/L CL 108 96-108 mmol/L CO2 26 22-29 mmol/L Gap 9 L 12-20 BUN 30 H 9-16 mg/dL Creat 1.01 0.5-1.4 mg/dL eGFR 52 Chronic Kidney Disease: Estimated GFR < 60 mL/min/1.73m2 Severe Kidney Disease: Estimated GFR < 15 mL/min/1.73m2 FBS 113 H 60-99 mg/dL A fasting glucose from 100-125 mg/dl is considered impaired (pre-diabetes). CA 9.1 8.4-10.2 mg/dL AST (GOT) 30 5-31 U/L ALT (GPT) 10 0-31 U/L Triglyceride 101 <150 mg/dL Desirable Triglyceride: less than 150 mg/dL Borderline High Triglyceride 150-199 mg/dL High Triglyceride: 200-499 mg/dL Very High Triglyceride: greater than or equal to 5OO mg/dL Cholesterol 226 H <200 mg/dL Desirable Cholesterol: less than 200 mg/dL Borderline High Cholesterol: 200-239 mg/dL High Cholesterol: greater than 239 mg/dL LDL Calculated 152 H <100 mg/dL Desirable LDL: less than 100 mg/dL Near Optimal/Above Optimal LDL: 110-129 mg/dL Borderline High LDL: 130-159 mg/dL High LDL: 160-189 mg/dL Very High LDL: greater than or equal to 190 mg/dL HDL 54 >40 mg/dL Desirable HDL: greater than 40 mg/dL Note: This HDL assay may give artificially low results in patients with liver disease. Vitamin D 25-OH 67.4 >30 ng/mL Health Based Reference Values* < 20 ng/mL Deficient 20-30 ng/mL Insufficient > 30 ng/mL Sufficient *Johnny CHI. N Engl J Med. 2007;357:266-280 There is no well-established upper level of normal vitamin D levels. Some laboratories use 50 ng/mL as an upper limit of normal. However, toxicity is patient-dependent and may occur at any level. Careful correlation with the patient's presentation is necessary and, if there is concern for vitamin D toxicity, treatment should be considered irrespective of the serum level. Care must be taken in interpreting Vitamin D results from different laboratories and methodologies. Published data demonstrated that results from patients undergoing hemodialysis may show a negative bias when tested with various automated 25-OH vitamin D assays when compared to LC-MS/MS. When testing samples from patients whose predominant form of Vitamin D is Vitamin D2, such as patients receiving Vitamin D2 supplementation, results that are subtherapeutic should be confirmed with another method such as LC-MS/MS. Free T4 1.29 0.71-1.85 ng/dL TSH 3rd Gen. 1.67 0.32-4.0 uIU/mL TSH 3rd Generation ([facility]) Assessment & Plan Assessment & Plan (1) Encounter for subsequent annual wellness visit in Medicare patient: Code(s): Z00.00 - Encounter for general adult medical examination without abnormal findings Plan: Medical wellness checklist reviewed, discussed with patient and updated. Copy given. Declines to get further vaccines. Up-to-date with her healthcare proxy and MOLST form (2) Acquired hypothyroidism: Code(s): E03.9 - Hypothyroidism, unspecified Plan: Currently taking levothyroxine 75 mcg (3) Dyslipidemia: Code(s): E78.5 - Hyperlipidemia, unspecified Plan: Currently taking red yeast rice (4) Essential hypertension: Code(s): I10 - Essential (primary) hypertension Plan: Currently on amlodipine, carvedilol, and enalapril maleate (5) Coronary artery disease: Comment: Followed at [facility] by Dr. Braxton Sosa Code(s): I25.10 - Atherosclerotic heart disease of ken[place] coronary artery without angina pectoris Qualifiers: Associated angina: without angina Coronary Disease-Associated Artery/Lesion type: k[place] artery [place] vs. transplanted heart: ken[place]ze heart Qualified Code(s): I25.10 - Atherosclerotic heart disease of ken[place]ze coronary artery without angina pectoris Plan: Currently on aspirin 81 mg daily (6) Age-related macular degeneration, wet, right eye: Comment: sees Dr Kirby Code(s): H35.3210 - Exudative age-related macular degeneration, right eye, stage unspecified Qualifiers: Exudative macular degeneration stage: unspecified stage Qualified Code(s): H35.3210 - Exudative age-related macular degeneration, right eye, stage unspecified Plan: [facility] [place] (7) Recurrent UTI (urinary tract infection): Comment: sees Dr Perry Code(s): N39.0 - Urinary tract infection, site not specified Plan: Take cephalexin 50 mg once a day, followed by Urology (8) Impaired fasting glucose: Code(s): R73.01 - Impaired fasting glucose Plan: Your previous fasting blood sugars were elevated above 100 mg/dL. Impaired glucose metabolism increases the risk for developing diabetes mellitus type 2, as well as heart attack and stroke later on. Lifestyle changes that promotes weight loss, healthy eating habits, and regular exercise are important, and can prevent the progression to diabetes Orders: Orders Alanine Aminotransferase 01/28/26 E03.9 - Hypothyroidism, unspecified, E55.9 - Vitamin D deficiency, unspecified, E78.5 - Hyperlipidemia, unspecified, H35.3210 - Exudative age-related macular degeneration, right eye, stage unspecified, I10 - Essential (primary) hypertension, I25.10 - Atherosclerotic heart disease of ken[place]ze coronary artery without angina pectoris, N39.0 - Urinary tract infection, site not specified, R73.01 - Impaired fasting glucose, Z00.00 - Encounter for general adult medical examination without abnormal findings Hemoglobin A1c 01/28/26 E03.9 - Hypothyroidism, unspecified, E55.9 - Vitamin D deficiency, unspecified, E78.5 - Hyperlipidemia, unspecified, H35.3210 - Exudative age-related macular degeneration, right eye, stage unspecified, I10 - Essential (primary) hypertension, I25.10 - Atherosclerotic heart disease of ken[place]ze coronary artery without angina pectoris, N39.0 - Urinary tract infection, site not specified, R73.01 - Impaired fasting glucose, Z00.00 - Encounter for general adult medical examination without abnormal findings Vitamin D 25-OH Total 01/28/26 E03.9 - Hypothyroidism, unspecified, E55.9 - Vitamin D deficiency, unspecified, E78.5 - Hyperlipidemia, unspecified, H35.3210 - Exudative age-related macular degeneration, right eye, stage unspecified, I10 - Essential (primary) hypertension, I25.10 - Atherosclerotic heart disease of ken[place]ze coronary artery without angina pectoris, N39.0 - Urinary tract infection, site not specified, R73.01 - Impaired fasting glucose, Z00.00 - Encounter for general adult medical examination without abnormal findings Thyroid Stimulating Hormone 01/28/26 E03.9 - Hypothyroidism, unspecified, E55.9 - Vitamin D deficiency, unspecified, E78.5 - Hyperlipidemia, unspecified, H35.3210 - Exudative age-related macular degeneration, right eye, stage unspecified, I10 - Essential (primary) hypertension, I25.10 - Atherosclerotic heart disease of ken[place]ze coronary artery without angina pectoris, N39.0 - Urinary tract infection, site not specified, R73.01 - Impaired fasting glucose, Z00.00 - Encounter for general adult medical examination without abnormal findings Free T4 (Free Thyroxine) 01/28/26 E03.9 - Hypothyroidism, unspecified, E55.9 - Vitamin D deficiency, unspecified, E78.5 - Hyperlipidemia, unspecified, H35.3210 - Exudative age-related macular degeneration, right eye, stage unspecified, I10 - Essential (primary) hypertension, I25.10 - Atherosclerotic heart disease of ken[place]ze coronary artery without angina pectoris, N39.0 - Urinary tract infection, site not specified, R73.01 - Impaired fasting glucose, Z00.00 - Encounter for general adult medical examination without abnormal findings Aspartate Amino Transferase 01/28/26 E03.9 - Hypothyroidism, unspecified, E55.9 - Vitamin D deficiency, unspecified, E78.5 - Hyperlipidemia, unspecified, H35.3210 - Exudative age-related macular degeneration, right eye, stage unspecified, I10 - Essential (primary) hypertension, I25.10 - Atherosclerotic heart disease of ken[place]ze coronary artery without angina pectoris, N39.0 - Urinary tract infection, site not specified, R73.01 - Impaired fasting glucose, Z00.00 - Encounter for general adult medical examination without abnormal findings Basic Metabolic Panel Fasting 01/28/26 E03.9 - Hypothyroidism, unspecified, E55.9 - Vitamin D deficiency, unspecified, E78.5 - Hyperlipidemia, unspecified, H35.3210 - Exudative age-related macular degeneration, right eye, stage unspecified, I10 - Essential (primary) hypertension, I25.10 - Atherosclerotic heart disease of ken[place] coronary artery without angina pectoris, N39.0 - Urinary tract infection, site not specified, R73.01 - Impaired fasting glucose, Z00.00 - Encounter for general adult medical examination without abnormal findings Lipid Panel 01/28/26 E03.9 - Hypothyroidism, unspecified, E55.9 - Vitamin D deficiency, unspecified, E78.5 - Hyperlipidemia, unspecified, H35.3210 - Exudative age-related macular degeneration, right eye, stage unspecified, I10 - Essential (primary) hypertension, I25.10 - Atherosclerotic heart disease of ken[place] coronary artery without angina pectoris, N39.0 - Urinary tract infection, site not specified, R73.01 - Impaired fasting glucose, Z00.00 - Encounter for general adult medical examination without abnormal findings Hemoglobin and Hematocrit 01/28/26 E03.9 - Hypothyroidism, unspecified, E55.9 - Vitamin D deficiency, unspecified, E78.5 - Hyperlipidemia, unspecified, H35.3210 - Exudative age-related macular degeneration, right eye, stage unspecified, I10 - Essential (primary) hypertension, I25.10 - Atherosclerotic heart disease of ken[place] coronary artery without angina pectoris, N39.0 - Urinary tract infection, site not specified, R73.01 - Impaired fasting glucose, Z00.00 - Encounter for [facility] adult medical examination without abnormal findings Quality Reporting (2019) Depression/Bipolar (159/160/161/177) PHQ-9: Total score: 1 Coding Level of Care Code Medicare Subsequent (G0439) Diagnoses Encounter for subsequent annual wellness visit in Medicare patient Z00.00 Acquired hypothyroidism E03.9 Dyslipidemia E78.5 Essential hypertension I10 Coronary artery disease involving kenaitze coronary artery of ken[place]ze heart without angina pectoris I25.10 Associated angina: without angina Coronary Disease-Associated Artery/Lesion type: [place] artery [place] vs. transplanted heart: ken[place]ze heart Exudative age-related macular degeneration of right eye, unspecified stage H35.3210 Exudative macular degeneration stage: unspecified stage Recurrent UTI (urinary tract infection) N39.0 Impaired fasting glucose R73.01 CPT Codes Advance Care Planning - Advance Care Planning discussion: On file, no changes ([id number]) Advance Care Planning - Time spent: 1-15 minutes, on File ([id number]) Additional Codes PHQ-9 - 98195 - PHQ-9 Billing: Yes ([id number]) Advance Care Planning Advance Care Planning discussion: On file, no changes Date of discussion: 06/07/25 Who was present: Patient Forms completed: Health Care Proxy and MOLST Time spent: 1-15 minutes, on File Actual minutes spent: 2
== END 2025-06-07 10:58 | disposition home or self-care (01) ==
LOC: HO.HMCC 09:18
PROVIDERS: PCP Internal Medicine; Visit Provider Internal Medicine
DX: Z00.00 Encounter for general adult medical examination without abnormal findings (principal); E03.9 Hypothyroidism, unspecified; H35.3210 Exudative age-related macular degeneration, right eye, stage unspecified; E78.5 Hyperlipidemia, unspecified; I10 Essential (primary) hypertension; I25.10 Atherosclerotic heart disease of native coronary artery without angina pectoris; N39.0 Urinary tract infection, site not specified; R73.01 Impaired fasting glucose

== ENCOUNTER → 2025-06-07 09:18 | Outpatient (BNVA) | payer MEDICARE, OTHER, SELFPAY | PROVIDERS: PCP Internal Medicine; Visit Provider Internal Medicine | DX: Z13.31 Encounter for screening for depression (principal) | CPT/HCPCS: 96127 ==